=== PATIENT | male | born 1970 | race Hispanic/Latino ===

== ENCOUNTER 2017-08-20 | Emergency (ER) | payer SELFPAY ==
--- NOTE | 2017-08-20 18:52 | ER ---
Nurse's Notes [facility] Name: Yobani Dang Age: 47 yrs Sex: Male : 1970 Arrival Date: 08/20/2017 Time: 18:42 Bed External Waiting Private MD: Diagnosis: Presentation: 08/20 18:40 Presenting complaint: EMS states: pt was being loaded into a police car after being iw arrested, appeared to have seizure like behavior, EMS arrived on scene and pt was A\T\OX3, not post-ictal, then while being loaded into ambulance pt started to c/o chest pain, sinus tach on monitor, hypertensive at 180/118, EMS gave Nitro SL X 2, last BP was 143/97, pt also started to c/o SOB upon arrival to ER. 18:40 Method Of Arrival: EMS: [facility] iw 18:40 Transition of care: patient was not received from another setting of care. Onset of iw symptoms was August 20, 2017. Care prior to arrival: Medication(s) given: ASA, 81 mg, x 4, Nitroglycerin, 0.4 mg SL x 2. 18:40 Acuity: MOR 3 iw Assessment: 18:42 Reassessment: pt ambulated out of department after receiving report from EMS. ED Course: 18:42 Patient arrived in ED. iw 18:44 Lucia Natarajan, RN is Primary Nurse. iw 18:48 Triage completed. iw Administered Medications: No medications were administered Outcome: 18:49 Eloped from patient exam room, before seeing physician Time discovered patient gone: iw August 20, 2017 at 18:42 18:49 Condition: improved 18:51 Patient left the ED. iw Signatures: Lucia Natarajan, RN RN iw
== END 2017-08-20 18:51 | disposition left against medical advice (07) ==
DX: Z53.21 Procedure and treatment not carried out due to patient leaving prior to being seen by health care provider (principal)
CPT/HCPCS: 99282

== ENCOUNTER 2022-04-16 17:24 | Emergency (ER) | payer SELFPAY ==
--- OUTSIDE RECORDS SUMMARY | 2022-04-16 17:26 | XMS REPORT | Continuity of Care Document ---
:1970 Author Organization [facility] t Address [address] [place] [address] Care Team Providers Name Role Phone DR MYLA BERMEO Attending Clinician Unavailable DR MYLA BERMEO Admitting Clinician Unavailable Payers Payer Name Policy Type Policy Number Effective Date Expiration Date S ource Problems This patient has no known problems. Allergies, Adverse Reactions, Alerts Allergy Allergy Status Severity Reaction(s) Onset Inactive Treating Comm ents Source Name Type Date Date Clinician No Known DA Active U 0 [facility] All[facility]ie 07-13 Pearlan s 00:00: d 00 [facility] Medications This patient has no known medications. Procedures This patient has no known procedures. Encounters Start End Encounter Admission Attending Care Care Encounter Source Date/Time Date/Time Type Type Clinicians Facility Department ID 2022-04-16 2022-04-16 Outpatient [facility] [id number] Jose Ramon 16:57:53 16:57:53 Carlos Alberto F Marcos 2017-08-23 2017-08-25 Inpatient E [facility] [id number] [place] 23:29:00 15:41:00 MYLA [facility] Results Test Description Test Time Test Comments Results Result Comments Source XR ELBOW LEFT 2017-08-25 Left Elbow, 3 COMPLETE 3 VIEWS 14:35:53 viewsLocation Code: [id number] HISTORY: M25.522: PAIN IN LEFT ELBOWCOMMENTS: AP, lateral, and oblique views of the left elbow demonstrate no acutefracture or malalignment. The soft tissues are unremarkable.IMPRESS ION: No acute radiographic abnormality. CPK 2017-08-25 04:32:00 Test Item Value Reference Range Interpretation Comme nts CPK (test code = 32A) 2560 IU/L 39-308 H BASIC METABOLIC [id number] 04:31:00 Test Item Value Reference Range Interpretation Comments GLUCOSE (test code = 06D) 112 mg/dL 75-100 H SODIUM (test code = 01A) 137 mmol/L 136-145 POTASSIUM (test code = 01B) 3.6 mmol/L 3.6-5.1 CHLORIDE (test code = 04A) 106 mmol/L 98-107 CO2 (test code = 02A) 26 mmol/L 22-32 ANION GAP (test code = ANG) 8.6 mmol/L BUN (test code = 05D) 11 mg/dL 7-18 CREATININE (test code = 03E) 0.8 mg/dL 0.7-1.3 BUN/CREA (test code = BCR) 14 12-20 CALCIUM (test code = 09D) 8.1 mg/dL 8.3-9.5 L CARDIAC [id number] 06:29:00 Test Item Value Reference Range Interpretation Comments TROPONIN I (test code = A84) 0.026 ng/mL 0.000-0.045 CKMB (test code = A49) 3.4 ng/mL <=3.6 CPK (test code = 32A) 6493 IU/L 39-308 H BASIC METABOLIC [id number] 06:08:00 Test Item Value Reference Range Interpretation Comments GLUCOSE (test code = 06D) 107 mg/dL 75-100 H SODIUM (test code = 01A) 139 mmol/L 136-145 POTASSIUM (test code = 01B) 3.9 mmol/L 3.6-5.1 CHLORIDE (test code = 04A) 107 mmol/L 98-107 CO2 (test code = 02A) 26 mmol/L 22-32 ANION GAP (test code = ANG) 9.9 mmol/L BUN (test code = 05D) 15 mg/dL 7-18 CREATININE (test code = 03E) 0.9 mg/dL 0.7-1.3 BUN/CREA (test code = BCR) 16 12-20 CALCIUM (test code = 09D) 7.8 mg/dL 8.3-9.5 L CBC (INCLUDES AUTOMATED DIFFERENTIAL)2017-08-24 06:00:00 Test Item Value Reference Range Interpretation Comments WBC (test code = WBC) 12.7 10\S\3/uL 4.5-11.0 H RBC (test code = RBC) 5.00 10\S\6/uL 4.20-5.60 HGB (test code = HBG) 14.7 g/dL 14.0-18.0 HCT (test code = HCT) 44.0 % 35.0-46.0 MCV (test code = MCV) 88.0 fL 80.0-94.0 MCH (test code = MCH) 29.4 pg 27.0-31.0 MCHC (test code = MCHC) 33.4 g/dL 32.0-36.0 RDW (test code = RDW) 11.9 % 11.5-14.5 PLT (test code = PLT) 276 10\S\3/uL 130-400 MPV (test code = MPV) 10.0 fL 9.4-12.4 NEUTROP # (test code = NE#) 8.8 10\S\3/uL 2.0-8.0 H LYMPH # (test code = LY#) 2.5 10\S\3/uL 1.2-4.0 MONOCYTE # (test code = MO#) 1.2 10\S\3/uL 0.0-1.1 H EOSINOPH # (test code = EO#) 0.1 10\S\3/uL 0.0-0.7 BASOPHIL # (test code = BA#) 0.0 10\S\3/uL 0.0-0.3 IG # (test code = IG#) 0.03 10\S\3/uL 0.00-0.06 NRBC # (test code = NRBC#) 0.00 10\S\3/uL 0.00-0.01 NEUTROPH % (test code = NE%) 69.7 % 35.0-73.0 LYMPH % (test code = LY%) 20.0 % 20.0-55.0 MONO % (test code = MO%) 9.1 % 2.5-10.0 EOSINOPH % (test code = EO%) 0.8 % 0.0-5.0 BASOPHIL % (test code = BA%) 0.2 % 0.0-2.0 IG % (test code = IG%) 0.2 % 0.0-0.8 NRBC% (test code = NRBC%) 0.0 % 0.0-0.2 MANDIFF (test code = MDIFF) NO NO RBC MORPH (test code = RBCMOR) NORMAL CARDIAC [id number] 22:59:00 Test Item Value Reference Range Interpretation Comments TROPONIN I (test code = A84) 0.030 ng/mL 0.000-0.045 CKMB (test code = A49) 4.2 ng/mL <=3.6 HH CPK (test code = 32A) 19138 IU/L 39-[address] HEAD W/O [id number] 22:45:39CT HEAD W/O CONTRASTLocation: [id number] [facility] provided 08/23/2017 10:45 PMIndication: R51: HEADACHEComparison: None available.Technique: Axial CT images were acquired through the brain without contrast.All CT scans at this facility use dose modulation, iterative reconstruction,and or weight-based dosing when appropriate to reduce radiation dose to as lowas reasonably achievable.Findings: No acute intracranial hemorrhage, mass or area of mass effect isnoted. The ventricles and sulci appear normal. Extra-axial spaces are clear.Limited views of the paranasal sinuses, mastoids and orbits appearunremarkable. The calvarium is intact.Impression: No acute intracranial abnormality.CT images were acquired within 24 hours of arrival at the facility.XR CHEST 1 VIEW [id number] 22:42:10XR CHEST 1 VIEW PORTABLELocation:R9Qjhip [facility] services provided 08/23/2017 10:41 PMIndication:[id number]: Chest painComparison:Not availableFindings:The lungs are equally and symmetrically inflated. The trachea ismidline. The cardiac silhouette is normal in size. No acute bony abnormality.Impression:No acute cardiopulmonary disease.AMYLASE AND [id number] 22:31:00 Test Item Value Reference Range Interpretation Comments AMYLASE (test code = 10A) 39 U/L 28-100 LIPASE (test code = 60A) 176 IU/L 73-393 COMPREHENSIVE METABOLIC [id number] 22:31:00 Test Item Value Reference Range Interpretation Comments GLUCOSE (test code = 06D) 83 mg/dL 75-100 SODIUM (test code = 01A) 140 mmol/L 136-145 POTASSIUM (test code = 01B) 3.9 mmol/L 3.6-5.1 CHLORIDE (test code = 04A) 104 mmol/L 98-107 CO2 (test code = 02A) 26 mmol/L 22-32 ANION GAP (test code = ANG) 13.9 mmol/L BUN (test code = 05D) 17 mg/dL 7-18 CREATININE (test code = 03E) 1.4 mg/dL 0.7-1.3 H BUN/CREA (test code = BCR) 12 12-20 CALCIUM (test code = 09D) 8.8 mg/dL 8.3-9.5 BILI TOTAL (test code = 11A) 0.3 mg/dL 0.2-1.0 PROTEIN (test code = 07D) 7.4 g/dL 6.4-8.2 ALBUMIN (test code = 08D) 3.6 g/dL 3.5-4.8 GLOBULIN (test code = GLB) 3.8 g/dL 1.5-3.8 ALB/GLOB (test code = AGRR) 0.9 1.0-2.6 L ALK PHOS (test code = 35A) 104 IU/L 42-121 AST (test code = 30A) 144 IU/L <=42 H ALT (test code = 31A) 64 IU/L <=78
[2022-04-16] MEDS ORDERED: DIAZEPAM 5 MG TABLET ONE (17:48)
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
--- NOTE | 2022-04-16 18:26 | EDPHYS ---
Physician Documentation [facility] Name: Yobani Dang Age: 52 yrs Sex: Male : 1970 Arrival Date: 04/16/2022 Time: 17:28 Bed 15 Private MD: ED Physician Jayden Nunes HPI: 04/16 17:54 This 52 yrs old Male presents to ER via Ambulatory with complaints of Anxiety. rn 17:54 The patient presents to the emergency department with anxiety, over unknown rn circumstances. Onset: The symptoms/episode began/occurred 2 day(s) ago. Associated signs and symptoms: Pertinent positives; anxiety, Pertinent negatives: chest pain, fever, hallucinations, homicidal ideation, shortness of breath, suicide ideation. Severity of symptoms: At their worst the symptoms were moderate in the emergency department the symptoms are unchanged. The patient has experienced similar episodes in the past. The patient has not recently seen a physician. Pt reports anxiety and panic attack, chronic anxiety, used to be on klonopin and celexa, but since leaving long term no longer taking it. Has appt coming up with [facility] but states doesn't feel like he can wait, wants anxiety medication now. Denies chest pain/sob/illness/fever. . Historical: - Allergies: 17:30 No Known Allergies; iw - Home Meds: 17:30 None [Active]; iw - PMHx: 17:30 Depression; Hypertension; PTSD; iw - PSHx: 17:30 knee; iw - Immunization history:: Client reports receiving the 2nd dose of the Covid vaccine. - Social history:: Smoking status: Patient denies any tobacco usage or history of. Patient/guardian denies using. - Family history:: not pertinent. - Hospitalizations: : No recent hospitalization is reported. ROS: 17:54 Constitutional: Negative for fever, chills, and weight loss, Eyes: Negative for injury, rn pain, redness, and discharge, Neck: Negative for injury, pain, and swelling, Cardiovascular: Negative for chest pain, palpitations, and edema, Respiratory: Negative for shortness of breath, cough, wheezing, and pleuritic chest pain, Abdomen/GI: Negative for abdominal pain, nausea, vomiting, diarrhea, and constipation, Back: Negative for injury and pain, MS/Extremity: Negative for injury and deformity, Skin: Negative for injury, rash, and discoloration, Neuro: Negative for headache, weakness, numbness, tingling, and seizure, Psych: Negative for suicide ideation, homicidal ideation, and hallucinations. Exam: 17:54 Constitutional: This is a well developed, well nourished patient who is awake, alert, rn seems very anxious Head/Face: Normocephalic, atraumatic. Eyes: Periorbital areas with no swelling, redness, or edema. Cardiovascular: Tachycardic, regular. No pulse deficits. Respiratory: Mild tachypnea, no retractions, no wheezing Abdomen/GI: Soft, non-tender Skin: Warm, dry, no cyanosis MS/ Extremity: Pulses equal, no cyanosis. Neuro: Awake and alert, GCS 15 18:01 ECG was reviewed by the Attending Physician. rn Vital Signs: 17:28 BP 169 / 110; Pulse 105; Resp 22; Temp 98.2; Pulse Ox 100% on R/A; Weight 104.33 kg; iw Height 5 ft. 6 in. (167.64 cm); 18:47 BP 134 / 90; Pulse 97; Resp 17; Pulse Ox 96% on R/A; tw2 17:28 Body Mass Index 37.12 (104.33 kg, 167.64 cm) iw MDM: 17:35 Patient medically screened. rn 18:24 Differential diagnosis: anxiety. Data reviewed: vital signs, nurses notes, EKG, and as rn a result, I will discharge patient. Counseling: I had a detailed discussion with the patient and/or guardian regarding: the historical points, exam findings, and any diagnostic results supporting the discharge/admit diagnosis, the need for outpatient follow up, to return to the emergency department if symptoms worsen or persist or if there are any questions or concerns that arise at home. Response to treatment: the patient's symptoms have markedly improved after treatment, and as a result, I will discharge patient. Special discussion: I discussed with the patient/guardian in detail that at this point there is no indication for admission to the hospital. It is understood, however, that if the symptoms persist or worsen the patient needs to return immediately for re-evaluation. Based on the history and exam findings, there is no indication for further emergent testing or inpatient evaluation. I discussed with the patient/guardian the need to see the psychiatrist for further evaluation of the symptoms. 11/15 17:44 Order name: EKG; Complete Time: 17:44 rn 04/16 17:44 Order name: EKG - Nurse/Tech; Complete Time: 17:56 rn EC:01 Rate is 101 beats/min. Rhythm is regular. QRS [place] is Normal. VT interval is normal. rn QRS interval is normal. QT interval is normal. No Q waves. T waves are Normal. No ST changes noted. Clinical impression: Sinus tachycardia. Interpreted by me. Reviewed by me. Administered Medications: 17:50 Drug: Valium (diazepam) 5 mg Route: PO; tw2 18:47 Follow up: Response: No adverse reaction tw2 Disposition Summary: 04/16/22 18:25 Discharge Ordered Location: Home rn Problem: an ongoing problem rn Symptoms: have improved rn Condition: Stable rn Diagnosis - Anxiety disorder, unspecified rn Followup: rn - With: Private Physician - When: As needed - Reason: Recheck today's complaints, Re-evaluation by your physician Discharge Instructions: - Discharge Summary Sheet rn - Panic Attack rn - Generalized Anxiety Disorder, Adult rn - Managing Anxiety, Adult rn Forms: - Medication Reconciliation Form rn - Thank You Letter rn - Antibiotic return checker - Prescription Opioid Use rn Prescriptions: - Celexa 20 mg Oral Tablet - take 1 tablet by ORAL route once daily; 30 tablet; Refills: 0, Product rn Selection Permitted - Valium 2 mg Oral Tablet - take 1 tablet by ORAL route once daily As needed; 5 tablet; Refills: 0, Product rn Selection Permitted Signatures: Lucia Natarajan RN RN iw Nieto, Roman, MD MD rn Wise, Tara, RN RN tw2 Corrections: (The following items were deleted from the chart) 17:31 17:30 PSHx: None; [facility]
[2022-04-16 19:07] VITALS: TEMP 98.2
[2022-04-16 19:08] VITALS: BP 134/90; O2SAT 96
--- NOTE | 2022-04-17 19:02 | EKG ---
Test Date: 2022-04-16 Test Time: 17:52:38 System Support Developer: WILMER MEASUREMENT RESULTS: Intervals: Rate: 101 TN: 140 QRSD: 90 QT: 372 QTc: 482 [place]: P: 39 TN: 140 QRS: -5 T: 19 INTERPRETIVE STATEMENTS: Sinus tachycardia Inferior infarct, age undetermined Abnormal ECG No previous ECG available for comparison Electronically Signed On 04-17-22 19:00:32 C APPLICATION DEVELOPER by Kirill Pastrana
== END 2022-04-16 19:02 | disposition home or self-care (01) ==
LOC: ER 17:24
DX: F41.9 Anxiety disorder, unspecified (principal)
CPT/HCPCS: 93005; 99283

== ENCOUNTER 2023-02-22 06:45 | Emergency (ER) | payer OTHER ==
[~2023-02-22 06:45] MED LIST: HYDROCODONE/APAP 5/325 MG TAB ONE; ONDANSETRON 4 MG (ODT) TAB ONE
--- OUTSIDE RECORDS SUMMARY | 2023-02-22 06:48 | XMS REPORT | Continuity of Care Document ---
:1970 Author Organization [facility] t Address [address] [place] [address] Care Team Providers Name Role Phone KYLEE REVELES Attending Clinician Unavailable [facility], DR LANZA Attending Clinician Unavailable [facility], DR LANZA Admitting Clinician Unavailable Payers Payer Name Policy Type Policy Number Effective Date Expiration Date S aan [employer] [facility] 9 [id number] 2022 00:00:00 SILVER: HMO MANAGER PRESENTATION 94 ON STAND Problems This patient has no known problems. Allergies, Adverse Reactions, Alerts Allergy Allergy Status Severity Reaction(s) Onset Inactive Treating Comm ents Source Name Type Date Date Clinician No Known DA Active U [facility] Allergie 2-11 Pearlan s 00:00: d 00 [facility] Medications This patient has no known medications. Procedures This patient has no known procedures. Encounters Start End Encounter Admission Attending Care Care Encounter Source Date/Time Date/Time Type Type Clinicians Facility Department ID 2022-10-31 2022-10-31 Outpatient ANTHONY REVELES [id number] [place] 15:15:00 15:15:00 KYLEE lewis 2022-10-16 2022-10-16 Outpatient ANTHONY REVELES [id number] Anthony 08:15:00 08:15:00 KYLEE lewis 2022-04-16 2022-04-16 Outpatient BOSSMAN KEITA [id number] Jose Ramon 16:57:53 16:57:53 Jazmin5 F Marcos 2017-08-23 2017-08-25 Inpatient E [facility] [id number] [place] 23:29:00 15:41:00 [facility] Results Test Description Test Time Test Comments Results Result Comments Source XR ELBOW LEFT 2017-08-25 Left Elbow, 3 COMPLETE 3 VIEWS 14:35:53 viewsLocation Code: [id number] HISTORY: M25.522: PAIN IN LEFT ELBOWCOMMENTS: AP, lateral, and oblique views of the left elbow demonstrate no acutefracture or malalignment. The soft tissues are unremarkable.IMPRESS ION: No acute radiographic abnormality. CPK 2017-08-25 04:32:00 Test Item Value Reference Range Interpretation Comme nts CPK (test code = 32A) 2560 IU/L 39-308 H BASIC METABOLIC [id number] 04:31:00 Test Item Value Reference Range Interpretation [...] = 09D) 8.1 mg/dL 8.3-9.5 L CARDIAC [id number] 06:29:00 Test Item Value Reference Range Interpretation Comments TROPONIN I (test code = A84) 0.026 ng/mL 0.000-0.045 CKMB (test code = A49) 3.4 ng/mL <=3.6 CPK (test code = 32A) 6493 IU/L 39-308 H BASIC METABOLIC [id number] 06:08:00 Test Item Value Reference Range Interpretation [...] MORPH (test code = RBCMOR) NORMAL CARDIAC [id number] 22:59:00 Test Item Value Reference Range Interpretation Comments TROPONIN I (test code = A84) 0.030 ng/mL 0.000-0.045 CKMB (test code = A49) 4.2 ng/mL <=3.6 HH CPK (test code = 32A) 02937 IU/L 39-[address] HEAD W/O [id number] 22:45:39CT HEAD W/O CONTRASTLocation: [id number] [employer] services provided 08/23/2017 10:45 PMIndication: R51: HEADACHEComparison: [...] arrival at the facility.XR CHEST 1 VIEW [id number] 22:42:10XR CHEST 1 VIEW PORTABLELocation:B8Prcrq [employer] services provided 08/23/2017 10:41 PMIndication:[id number]: Chest painComparison:Not availableFindings:The lungs are equally and symmetrically inflated. The trachea ismidline. The cardiac silhouette is normal in size. No acute bony abnormality.Impression:No acute cardiopulmonary disease.AMYLASE AND [id number] 22:31:00 Test Item Value Reference Range Interpretation Comments AMYLASE (test code = 10A) 39 U/L 28-100 LIPASE (test code = 60A) 176 IU/L 73-393 COMPREHENSIVE METABOLIC [id number] 22:31:00 Test Item Value Reference Range Interpretation [...]
[2023-02-22 07:49] LABS: Absolute Lymphocytes (CBC) 1.3 K/uL (0.7-4.9); Hematocrit 44.1 % (39.6-49.0); Lymphocytes % 18.6 % (15.3-44.8); MCV 90.6 fL (80-100); MPV 7.8 fL (7.6-11.3); Platelets 223 thou/uL (152-406); RBC Red Blood Cell Count 4.87 M/uL (4.33-5.43)
[2023-02-22 08:10] LABS: Potassium 4.1 mEq/L (3.5-5.1); Troponin High Sensitivity 34.2 pg/mL (<58.9)
[2023-02-22] MEDS ORDERED: DIAZEPAM 2 MG TABLET ONE (08:31)
--- NOTE | 2023-02-22 08:54 | EDPHYS ---
Physician Documentation [facility] Name: Yobani Dang Age: 53 yrs Sex: Male : 1970 Arrival Date: 02/22/2023 Time: 06:45 Bed 5 Private MD: ED Physician Jayden Nunes HPI: 02/22 07:44 This 53 yrs old Male presents to ER via Ambulatory with complaints of Anxiety. rn 07:44 Patient reports feeling anxious. Has generalized anxiety and takes multiple medication rn including trazodone and citalopram and Zyprexa. Has not run out of medication. No acute triggers. Patient reports started feeling anxious this morning and does not know why. Denies any chest pain or shortness of breath. No palpitations. Reports has hypertension and knows his blood pressure is high as well, compliant with amlodipine. Patient reports feeling of anxiety associated with nausea and sweating. Patient states that this constellation of symptoms has happened before with previous anxiety episodes.. Onset: The symptoms/episode began/occurred this morning. Severity of symptoms: At their worst the symptoms were moderate in the emergency department the symptoms are unchanged. The patient has experienced similar episodes in the past. The patient has not recently seen a physician. Historical: - Allergies: 07:11 No Known Allergies; hb - Home Meds: 07:11 citalopram oral [Active]; aripiprazole oral [Active]; trazodone Oral [Active]; hb amlodipine oral [Active]; - PMHx: 07:11 Depression; Hypertension; PTSD; Kidney Stones; Anxiety; hb - PSHx: 07:11 Knee - Right (knee); Lithotripsy; hb - Immunization history:: Adult Immunizations up to date. - Social history:: Smoking status: Patient denies any tobacco usage or history of. - Family history:: not pertinent. - Hospitalizations: : No recent hospitalization is reported. ROS: 07:44 Constitutional: Negative for fever, chills, and weight loss, Eyes: Negative for injury, rn pain, redness, and discharge, Cardiovascular: Negative for chest pain, palpitations, and edema, Respiratory: Negative for shortness of breath, cough, wheezing, and pleuritic chest pain, Abdomen/GI: Positive for nausea, negative for vomiting, negative for abdominal pain Back: Negative for injury and pain, MS/Extremity: Negative for injury and deformity, Skin: Negative for injury, rash, and discoloration, Neuro: Negative for headache, weakness, numbness, tingling, and seizure, Exam: 07:44 Constitutional: This is a well developed, well nourished patient who is awake, alert, rn and in no acute distress. No diaphoresis and is ambulatory to room without distress or assistance Head/Face: Normocephalic, atraumatic. ENT: Dry mucous membranes Cardiovascular: Regular rate and rhythm. No pulse deficits. Respiratory: No increased work of breathing, no retractions or nasal flaring. Abdomen/GI: Soft, non-tender Skin: Warm, dry MS/ Extremity: Pulses equal, no cyanosis. Neuro: Awake and alert, GCS 15, oriented to person, place, time, and situation. Cranial nerves II-XII grossly intact. Motor strength 5/5 in all extremities. Sensory grossly intact. Cerebellar exam normal. Normal gait. 08:15 ECG was reviewed by the Attending Physician. rn Vital Signs: 07:10 BP 168 / 110; Pulse 95; Resp 19; Temp 98.3; Pulse Ox 100% on R/A; Weight 108.86 kg; hb Height 5 ft. 6 in. ; Pain 0/10; 08:28 BP 160 / 100; Pulse 90; Resp 18; Pulse Ox 97% on R/A; ph 09:22 BP 148 / 79; Pulse 89; Resp 18; Pulse Ox 98% on R/A; ld1 07:10 Body Mass Index 38.74 (108.86 kg, 167.64 cm) hb 07:10 Pain Scale: Adult hb MDM: 07:02 Patient medically screened. rn 08:52 Differential Diagnosis Anxiety, acute myocardial infarction, hypertension, anemia. Data rn reviewed: vital signs, nurses notes, lab test result(s), EKG. 08:53 Independent interpretation of the following test(s) in the Emergency Department X-Ray: rn My interpretation is Chest x-ray images negative for pneumothorax per my interpretation. Counseling: I had a detailed discussion with the patient and/or guardian regarding the historical points, exam findings, and any diagnostic results supporting the discharge/admit diagnosis, lab results, radiology results, the need for outpatient follow up, to return to the emergency department if symptoms worsen or persist or if there are any questions or concerns that arise at home. Response to treatment: the patient's symptoms have mildly improved after treatment, and as a result, I will discharge patient. Special discussion: I discussed with the patient/guardian in detail that at this point there is no indication for admission to the hospital. It is understood, however, that if the symptoms persist or worsen the patient needs to return immediately for re-evaluation. 08:54 ED course: I have personally reviewed all of the results, including but not limited to rn blood tests and imaging deemed necessary to safely discharge this patient at this time. All results given to and printed out for patient. I personally went over all the results with the patient and answered all questions. Patient will follow-up with PCP and or specialist as discussed. Return precautions given and understood.. 02/22 07:08 Order name: Basic Metabolic Panel; Complete Time: 08:11 02/22 07:08 Order name: CBC with Diff; Complete Time: 08:11 02/22 07:08 Order name: NT PRO-BNP; Complete Time: 08:11 02/22 07:08 Order name: Troponin HS; Complete Time: 08:11 02/22 07:08 Order name: XRAY Chest (1 view); Complete Time: 09:18 02/22 07:08 Order name: EKG; Complete Time: 07:02/22 07:08 Order name: Cardiac monitoring; Complete Time: 08:18 02/22 07:08 Order name: EKG - Nurse/Tech; Complete Time: 08:18 02/22 07:08 Order name: IV Saline Lock; Complete Time: 08:18 02/22 07:08 Order name: Labs collected and sent; Complete Time: 08:18 02/22 07:08 Order name: O2 Per Protocol; Complete Time: 08:18 02/22 07:08 Order name: O2 Sat Monitoring; Complete Time: 08:18 rn EC:15 Rate is 89 beats/min. Rhythm is regular. QRS [place] is Normal. [place] interval is normal. QRS rn interval is normal. QT interval is normal. No Q waves. T waves are Normal. No ST changes noted. Clinical impression: Normal ECG. Interpreted by me. Reviewed by me. Administered Medications: 08:26 Drug: Diazepam PO 2 mg PO once Route: PO; ph Disposition Summary: 02/22/23 08:53 Discharge Ordered Notes: Location: Home rn Problem: new rn Symptoms: have improved rn Condition: Stable rn Diagnosis - Anxiety disorder, unspecified rn Followup: rn - With: Private Physician - When: As needed - Reason: Recheck today's complaints, Re-evaluation by your physician Discharge Instructions: - Discharge Summary Sheet rn - Generalized Anxiety Disorder, Adult rn - Managing Anxiety, Adult rn Forms: - Medication Reconciliation Form rn - Thank You Letter rn - Antibiotic double corner cutter - Prescription Opioid Use rn - Patient Portal Instructions rn - Leadership Thank You Letter rn Prescriptions: - Valium 2 mg Oral tablet - take 1 tablet ORAL route once daily As needed; 5 tablet; Refills: 0, Product rn Selection Permitted - Zithromax Z-Dru 250 mg Oral Tablet - take 1 tablet ORAL route as directed for 5 days Day 1 - take two (2) tablets rn one time. Day 2, 3, 4 , 5 take one (1) tablet once daily.; 6 tablet; Refills: 0, Product Selection Permitted Signatures: Dispatcher [employer] EDNE Jayden Nunes MD MD rn Hall, Patricia, RN RN ph Baxter, Heather, RN RN hb Corrections: (The following items were deleted from the chart) 07:21 07:11 PSHx: knee; hb hb
--- NOTE | 2023-02-22 08:54 | ER ---
Nurse's Notes [facility] Name: Yobani Dang Age: 53 yrs Sex: Male : 1970 Arrival Date: 02/22/2023 Time: 06:45 Bed 5 Private MD: Diagnosis: Anxiety disorder, unspecified Presentation: 02/22 07:10 Chief complaint: Feeling anxious since 11pm last night, also reports nausea, dry hb heaves, and sweating. Denies chest pain/SOB. Coronavirus screen: At this time, the client does not indicate any symptoms associated with coronavirus-19. Ebola Screen: No symptoms or risks identified at this time. Initial Sepsis Screen: Does the patient meet any 2 criteria? No. Patient's initial sepsis screen is negative. Does the patient have a suspected source of infection? No. Patient's initial sepsis screen is negative. Risk Assessment: Do you want to hurt yourself or someone else? Patient reports no desire to harm self or others. Onset of symptoms was February 21, 2023. 07:10 Method Of Arrival: Ambulatory hb 07:10 Acuity: MOR 3 hb Historical: - Allergies: 07:11 No Known Allergies; hb - Home Meds: 07:11 citalopram oral [Active]; aripiprazole oral [Active]; trazodone Oral [Active]; hb amlodipine oral [Active]; - PMHx: 07:11 Depression; Hypertension; PTSD; Kidney Stones; Anxiety; hb - PSHx: 07:11 Knee - Right (knee); Lithotripsy; hb - Immunization history:: Adult Immunizations up to date. - Social history:: Smoking status: Patient denies any tobacco usage or history of. - Family history:: not pertinent. - Hospitalizations: : No recent hospitalization is reported. Screenin:27 [facility] ED Fall Risk Assessment (Adult) History of falling in the last 3 months, ph including since admission No falls in past 3 months (0 pts) Confusion or Disorientation No (0 pts) Intoxicated or Sedated No (0 pts) Impaired Gait No (0 pts) Mobility Assist Device Used No (0 pt) Altered Elimination No (0 pt) Score/Fall Risk Level 0 - 2 = Low Risk Oriented to surroundings, Maintained a safe environment, Provided non-skid footwear, Hourly rounding (assess needs \T\ fall precautionary measures) done. Abuse screen: Denies threats or abuse. Denies injuries from another. Nutritional screening: No deficits noted. Tuberculosis screening: No symptoms or risk factors identified. Assessment: 08:27 General: Appears in no apparent distress. Behavior is calm, cooperative. Pain: Denies ph pain. Neuro: Level of Consciousness is awake, alert, obeys commands, Oriented to person, place, time, situation. Cardiovascular: Reports diaphoresis, lightheadedness, nausea, Denies chest pain, shortness of breath, Capillary refill < 3 seconds in bilateral fingers Patient's skin is warm and dry. Respiratory: Airway is patent Respiratory effort is even, unlabored. Derm: Skin is pink, warm \T\ dry. 09:22 Reassessment: Patient appears in no apparent distress at this time. No changes from ld1 previously documented assessment. Patient and/or family updated on plan of care and expected duration. Pain level reassessed. Vital Signs: 07:10 BP 168 / 110; Pulse 95; Resp 19; Temp 98.3; Pulse Ox 100% on R/A; Weight 108.86 kg; hb Height 5 ft. 6 in. ; Pain 0/10; 08:28 BP 160 / 100; Pulse 90; Resp 18; Pulse Ox 97% on R/A; ph 09:22 BP 148 / 79; Pulse 89; Resp 18; Pulse Ox 98% on R/A; ld1 07:10 Body Mass Index 38.74 (108.86 kg, 167.64 cm) hb 07:10 Pain Scale: Adult hb ED Course: 06:48 Patient arrived in ED. ag3 06:58 Jayden Nunes MD is Attending Physician. rn 07:11 Triage completed. hb 07:16 Michelle Manzano, WANDA is Primary Nurse. ld1 07:50 XRAY Chest (1 view) In Process Unspecified. EDMS 08:26 Arm band placed on Patient placed in an exam room. ph 08:26 Initial lab(s) drawn, by ED staff, sent to lab. Inserted saline lock: 22 gauge in right ph hand, using aseptic technique. 08:27 Patient has correct armband on for positive identification. Placed in gown. Bed in low ph position. Call light in reach. Side rails up X2. Client placed on continuous cardiac and pulse oximetry monitoring. NIBP monitoring applied. Door closed. Noise minimized. Lights dimmed. Warm blanket given. : No provider procedures requiring assistance completed. IV discontinued, intact, ld1 bleeding controlled, No redness/swelling at site. Administered Medications: : Drug: Diazepam PO 2 mg PO once Route: PO; ph Medication: : VIS not applicable for this client. ph Outcome: 08:53 Discharge ordered by . wanda : Discharged to home ambulatory, ld1 : Condition: stable : Discharge instructions given to patient, Instructed on discharge instructions, follow up and referral plans. medication usage, Demonstrated understanding of instructions, follow-up care, medications, Prescriptions given X 2, : Patient left the ED. ld1 Signatures: Dispatcher [employer] EDMS Jayden Nunes MD MD rn Hall, Patricia, RN RN ph Baxter, Heather, RN RN Jazmin Messer Lauren, RN RN ld1 Corrections: (The following items were deleted from the chart) 07:21 07:11 PSHx: knee; hb hb
--- NOTE | 2023-02-22 09:11 | RAD REPORT ---
EXAM DESCRIPTION: RAD - Chest Single View - 02/22/2023 7:48 am CLINICAL HISTORY: anxiety Chest pain. COMPARISON: <Comparisons> FINDINGS: Portable technique limits examination quality. The lungs are underinflated which causes vascular prominence. Mild patchy opacity in the left retroca rdiac region suggesting mild infiltrate is possible. The heart is normal in size.
[2023-02-22 09:46] VITALS: TEMP 98.3
[2023-02-22 09:48] VITALS: BP 148/79; O2SAT 98
--- NOTE | 2023-02-24 12:35 | EKG ---
Test Date: 2023-02-22 Test Time: 08:13:30 Preparer: PH MEASUREMENT RESULTS: Intervals: Rate: 89 VT: 140 QRSD: 90 QT: 390 QTc: 474 [place]: P: 54 VT: 140 QRS: -14 T: 48 INTERPRETIVE STATEMENTS: Normal sinus rhythm Normal ECG Compared to ECG 04/16/2022 17:52:38 Sinus tachycardia no longer present Myocardial infarct finding no longer present Electronically Signed On 02-24-23 12:31:24 CDT by Manan Price
== END 2023-02-22 09:23 | disposition home or self-care (01) ==
LOC: ER 06:45
DX: F41.9 Anxiety disorder, unspecified (principal)
CPT/HCPCS: 85025; 80048; 36415; 84484; 83880; 71045; 99284; Q0162; 93005

== ENCOUNTER 2023-09-03 04:37 | Emergency (ER) | payer OTHER ==
--- OUTSIDE RECORDS SUMMARY | 2023-09-03 04:39 | XMS REPORT | Continuity of Care Document ---
Author Name Unknown Address [address] [facility] [address] [place] [address] [facility] Address [address] [facility] 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 9 [id number] 2022 00:00:00 Allergies, Adverse Reactions, Alerts Allergy Name Allergy Type Status Severity Reaction(s) Onset Date Inactive Date Treating Clinician Comments Source No Known Allergie s DA Active U 07-13 00:00: 00 [facility] Encounters Start Date/Time End Date/Time Encounter Type Admission Type Attending Clinicians Care Facility Care Department Encounter ID Source 2023-03-14 13:47:13 2023-03-14 13:47:13 Outpatient [facility] [id number] Jose Ramon Rodríguez 2022-10-31 15:15:00 2022-10-31 15:15:00 Outpatient KYLEE REVELES [id number] Nette Chiang 2022-10-16 08:15:00 2022-10-16 08:15:00 Outpatient KYLEE REVELES [id number] Nette zoraida 2022-04-16 16:57:53 2022-04-16 16:57:53 Outpatient [facility] [id number] Jose Ramon Rodríguez 2017-08-23 23:29:00 2017-08-25 15:41:00 Inpatient [facility] [id number] [facility] Results Test Description Test Time Test Comments Results Result Co mments Source XR ELBOW LEFT COMPLETE 3 VIEWS 2017-08-25 14:35:53 Left Elbow, 3 viewsLocation Code: U4GOVANLTT HISTORY: M25.522: PAIN IN LEFT ELBOWCOMMENTS: AP, lateral, and oblique views of the left elbow demonstrate no acutefracture or malalignment. The soft tissues are unremarkable.IMPRESS ION: No acute radiographic abnormality. BASIC METABOLIC [id number] 04:31:00* Test Item Value Reference Range Interpretation Comme nts GLUCOSE (test code = 06D) 112 mg/dL [...] = 09D) 8.1 mg/dL 8.3-9.5 L CARDIAC [id number] 06:29:00* Test Item Value Reference Range Interpretation Comme nts TROPONIN I (test code = A84) 0.026 ng/mL 0.000-0.045 CKMB (test code = A49) 3.4 ng/mL <=3.6 CPK (test code = 32A) 6493 IU/L 39-308 H BASIC METABOLIC [id number] 06:08:00* Test Item Value Reference Range Interpretation Comme nts GLUCOSE (test code = 06D) 107 mg/dL [...] mg/dL 8.3-9.5 L CBC (INCLUDES AUTOMATED DIFFERENTIAL)2017-08-24 06:00:00* Test Item Value Reference Range Interpretation Comme nts WBC (test code = WBC) 12.7 10\S\3/uL [...] MORPH (test code = RBCMOR) NORMAL CARDIAC [id number] 22:59:00* Test Item Value Reference Range Interpretation Comme nts TROPONIN I (test code = A84) 0.030 ng/mL 0.000-0.045 CKMB (test code = A49) 4.2 ng/mL <=3.6 HH CPK (test code = 32A) 81846 IU/L 39-[address] HEAD W/O [id number] 22:45:39CT HEAD W/O CONTRASTLocation: D9Llgxn hours services provided 08/23/2017 10:45 PMIndication: R51: HEADACHEComparison: None available.Technique: Axial CT images were acquired through the brain without contrast.All CT scans at this facility use dose modulation, iterative reconstruction,and or weight-based dosing when appropriate to reduce radiation dose to as lowas reasonably achievable.Findings: Noacute intracranial hemorrhage, mass or area of mass effect isnoted. The ventricles and sulci appear normal. Extra-axial spaces are clear.Limited views of the paranasal sinuses, mastoids and orbits appearunremarkable. The calvarium is intact.Impression: No acute intracranial abnormality.CT imageswere acquired within 24 hours of arrival at the facility.XR CHEST 1 VIEW [id number] 22:42:10XR CHEST 1 VIEW PORTABLELocation:B3Xewnc hours services provided 08/23/2017 10:41 PMIndication:[id number]: Chest painComparison:Not availableFindings:The lungs are equally and symmetrically inflated. The trachea ismidline. The cardiac silhouette is normal in size. No acute bony abnormality.Impression:No acute cardiopulmonary disease.AMYLASE AND [id number] 22:31:00* Test Item Value Reference Range Interpretation Comme nts AMYLASE (test code = 10A) 39 U/L 28-100 LIPASE (test code = 60A) 176 IU/L 73-393 COMPREHENSIVE METABOLIC [id number] 22:31:00* Test Item Value Reference Range Interpretation Comme nts GLUCOSE (test code = 06D) 83 mg/dL [...] (test code = 31A) 64 IU/L <=78 Notes Date/Time Note Provider Source 2018-07-13 01:07:00 [id number]:07 :00 [facility])EMERGENCY PROVIDER REPORTREPORT#:[id number] REPORT STATUS: SignedDATE:07/13/18 TIME:106 PATIENT: ALVARO MCFARLAND UNIT #: [id number]#: [id number] ROOM/BED:: 71 AGE: 48 SEX: M PCP PHYS: No Primary or Family PhysicianSERVICE AUTHOR: Kat Pascal MD * ALL edits or amendments must be made on the electronic/computer document * HPI-Dyspnea/Wheezing GeneralConfirmed Patient YesPatient Type New patientInitial Greet Date/Time 07/13/18106 PresentationChief Complaint Chest pain, Congestive heart failure, Shortness of breathHx Obtained From Patient, Process Machine Operator)( Sudden in Onset? YesSymptom Duration Since onsetProgression since Onset Gradually improvingSeverity: Onset ModerateSeverity: Current ModerateAssociated withReports: Chest pain. Denies: Cough, Diaphoresis, Fever, Leg pain, Leg swelling,Nausea, Vomiting. Exacerbated by NothingRelieved by Nothing Free Text HPI NotesFree Text HPI [id number] HM with PMH of CAD, CHF, and HTN p/w chest pain and SOB since this AM. Preceded by lightheadedness and dizziness. Associated with SOB. Exacerbated whenhe was stopped for shoplifting at [employer] (sandwich, bag of popcorn, and ice cream). Noted to be hypertensive on EMS arrival (185/120); given 20mg IV Labetalol en route to ER with improvement in symptoms. Pt now states symptoms remain present, but improved. Denies RICHARDSON, syncope, or N/V/D. Portions of this section were scribed by Luisito Estrella on 07/13/18 at 0337 Review of Systems ROS StatementsAll systems rev neg except as marked. Focused Review of SystemsConstitutionalDenies: Chills, Lethargy. Portions of this section were scribed by Luisito Estrella on 07/13/18 at 0107 Past Medical History - AdultStated Complaint CHEST PAINAllergiesCoded Allergies:No Known Allergies (07/13/18) Review of Nursing Notes Rev avail, and agreeSmoking status for patients 13 years old or older: Never Smoker Portions of this section were scribed by Luisito Estrella on 07/13/18 at 0107 Physical Exam Vital SignsVital SignsFirst Documented: Result Date Time Pulse Ox 100 07/13 99 B/P 148/98 07/13 99 B/P Mean 114 07/13 99 O2 Delivery Room air 07/13 99 Temp 98.3 07/13 99 Pulse 96 07/13 99 Resp 15 07/13 99 Last Documented: Result Date Time Pulse Ox 100 07/13 99 B/P 148/98 07/13 99 B/P Mean 114 07/13 99 O2 Delivery Room air 07/13 99 Temp 98.3 07/13 99 Pulse 96 07/13 99 Resp 15 07/13 99 Review of Vital Signs Reviewed Focused PEGeneral/Const General/Const Awake, Alert, No acute distress, Cooperative, Not toxic appearingEars/Nose/Throat Ears/Nose/Throat Mucous membranes moistMS Neck Neck Atraumatic, Supple, No meningismus, Full range of motionResp/Chest Respiratory/Chest Atraumatic, Breath sounds NL, Breath sounds = bilat, No respiratory distressCardiovascular Cardiovascular Heart rate NL, Regular rhythm, Heart sounds NL, Peripheral circulation NLAbdomen/GI Abdomen/GI Soft, Non-tender, No distentionSkin Skin Warm, Dry, IntactNeurologic Neurologic Oriented X3, Speech NL Portions of this section were scribed by Luisito Estrella on 07/13/18 at 0337 Interpretation Diagnostics Point of Care TestingPulse Oximetry Pulse Ox % 100 On: Room air Interpretation Interpreted by me, Pulse oximetry normal Time 0100 Portions of this section were scribed by Luisito Estrella on 07/13/18 at 0107 Re-Evaluation MDM Free Text MDM NotesFree Text MDM NotesA/P: 48yo HM with PMH as above p/w chest pain and SOB1. Labs2. CXR3. EKG4. Re-assessADDENDUMTime: 0105Immediately after concluding interview, Pt states that he wants to leave AMA - does not give reasoning. Pt has capacity to make this decision. Will remove IV and Pt to leave in police custody. Pt re-assessed; symptoms improved. Results of work-up d/w Pt; voiced understanding. OK for DC home with PCP follow-up. )( Re-Evaluation/Progress #1Time of Re-Eval 0105)( Re-Eval Status UnchangedPlan Post Re-Eval AMA Differential DiagnosisDifferential Diagnosis Acute coronary syndrome, Congestive heart failure, Panic attack Patient Discharge Departure Vital Signs/ConditionVital SignsFirst Documented: Result Date Time Pulse Ox 100 07/13 0100 B/P 148/98 07/13 0100 B/P Mean 114 07/13 0100 O2 Delivery Room air 07/13 99 Temp 98.3 07/13 0100 Pulse 96 07/13 0100 Resp 15 07/13 0100 Last Documented: Result Date Time Pulse Ox 100 07/13 0100 B/P 148/98 07/13 0100 B/P Mean 114 07/13 0100 O2 Delivery Room air 07/130 Temp 98.3 07/13 0100 Pulse 96 07/13 0100 Resp 15 07/13 0100 All vital signs available at the time of this entry have been reviewed. Condition Stable Clinical ImpressionClinical ImpressionPrimary Impression: Left sided chest painSecondary Impressions: ARRESTED FOR SHOPLIFTING, Malignant hypertension Disposition DecisionOther )( Time 0108 )( Date 07/13/18 Against Medical Advice Yes Discharge/Care PlanCounseled Regarding When to return to ED Against Medical Advice AMA Note 1Pt has decided to leave our facility against medical advice. I have assessed thepatient's ability to make an informed decision and it is my opinion at this timethat the patient has the medical decision-making capacity to comprehend information regarding current medical condition and appreciates the impact of the disease or condition and the consequences of various options for treatment, including foregoing treatment. The patient possesses the ability to evaluate alltreatment options, compare the risks and benefits of each option, communicate choice in a consistent manner over time, and is able to make rational choices. Ihave explained to the patient further testing, treatment, and evaluation I wouldlike to perform during the current emergency department visit as well as any possible alternatives that could be accomplished in a timely manner. I have outlined the possible risks of foregoing any or all of these interventions and the patient understands and acknowledges that the decision to leave may result in undesirable consequences such as , permanent disability, and/or loss of current lifestyle. Even though leaving AMA is not ideal, I have instructed the patient to follow any discharge instructions given, take any medications prescribed, and resume care as soon as possible with another provider. Additionally, we clearly stated that the patient is welcome to return at any time to continue care at our facility. AMA Request from PatientCognition Alert, Oriented X 3, Answers appropriate, Speaks coherently, Thought process intact, Understands AMACompetent to Decide YesReason for leaving AMA Refused to stayDiscussed Options to AMA YesPresent for Explanation Myself, NurseRisk Info Explained Possibility of , Permanent disability, Chronic pain, Worsening of condition, Neurological dysfunction, Cardiac dysfunction, Respiratory dysfunction, Mental impairment Quality [id number] ECG for CP Performed documented Supervising Physician Note Scribe StatementLuisito Estrella, 07/13/18 0337, scribing for and in the presence of Dr. Pascal.Signed By: Luisito Estrella, 07/13/18 0337 Provider Scribed StatementI personally performed the services described in this documentation and reviewedthe documentation that was dictated to the scribe(s) in my presence, and it accurately records my words and actions. Kat Pascal, 07/13/18 Portions of this section were scribed by Luisito Estrella on 07/13/18 at 0337 at 0347 RPT #: [id number] OF REPORTEDEmersaint mary's regional medical center department [id number]:07:00L.[id number] ilable for patient [id number]:47:20 [facility] 2018-07-13 01:01:00 [id number]:01 :[id number] [facility] [address] [place] [address] PATIENT NAME: ALVARO MCFARLAND ADMIT DATE: 07/13/18ACCOUNT NO: [id number] ROOM NO: AGE: 48 REPORT TYPE: eELECTROCARDIOGRAM SEX: M ADMITTING PHYSICIAN: ATTENDING PHYSICIAN: Order:[id number] Reason : (Not Selected) Test Date/Time Stamp:FriJul 13 2018 01:01:26Blood Pressure : / mmHGVent. Rate : 097 BPM Atrial Rate : 097 BPM P-R Int : 136 ms QRS Dur : 098 ms QT Int : 360 ms P-R-T Axes : 048 007 044 degrees QTc Int : 457 ms Normal sinus rhythmNormal ECGNo previous ECGs availableConfirmed by ARNOLD OROURKE MD ([id number]) on 07/17/2018 12:31:14 AM Referred By: Self Referred Confirmed by:ARNOLD OROURKE MD at 0031 PATIENT NAME: ALVARO MCFARLAND .[id number] AVAvailable for patient [id number]:30:56 [facility]
[2023-09-03] MEDS ORDERED: DIAZEPAM 5 MG TABLET ONE (05:22)
--- NOTE | 2023-09-03 06:22 | EDPHYS ---
Physician Documentation [facility] Name: Yobani Dang Age: 53 yrs Sex: Male : 1970 Arrival Date: 09/03/2023 Time: 04:37 Bed 8 Private MD: ED Physician Jermaine Cardoso HPI: 09/02 05:05 This 53 yrs old Male presents to ER via Unassigned with complaints of Anxiety. sp4 05:05 Allergies: No Known Allergies; Home Meds: citalopram oral; aripiprazole oral; trazodone sp4 Oral; amlodipine oral PMHx: Depression; Hypertension; PTSD; Kidney Stones; Anxiety PSHx: Knee - Right (knee); Lithotripsy. 07:36 Patient presents with complaint of acute anxiety attack starting this morning at about sp4 3 AM. 07:36 Patient has prior history of anxiety attacks. Patient is on citalopram and aripiprazole sp4 p.o.. Historical: - Home Meds: 05:15 amlodipine oral [Active]; aripiprazole oral [Active]; citalopram oral [Active]; vc1 - PMHx: 05:15 Anxiety; Depression; Hypertension; Kidney stones; PTSD; vc1 - PSHx: 05:15 Knee - Right (knee); Lithotripsy; vc1 - Immunization history:: Client reports having NOT received the Covid vaccine. Flu vaccine is not up to date. - Infectious Disease History:: Denies. - Social history:: Smoking status: Patient denies any tobacco usage or history of. - Family history:: not pertinent. ROS: 07:36 Constitutional: Negative for fever, chills, and weight loss, positive acute anxiety sp4 07:36 All other systems are negative, Exam: 07:36 Constitutional: This is a well developed, well nourished patient who is awake, alert, sp4 and in no acute distress. Head/Face: Normocephalic, atraumatic. Eyes: Pupils equal round and reactive to light, extra-ocular motions intact. Lids and lashes normal. Conjunctiva and sclera are not injected. Cornea within normal limits. Periorbital areas with no swelling, redness, or edema. ENT: Nares patent. No nasal discharge, no septal abnormalities noted. Tympanic membranes are normal and external auditory canals are clear. Oropharynx with no redness, swelling, or masses, exudates, or evidence of obstruction, uvula midline. Mucous membranes moist. Neck: Trachea midline, no thyromegaly or masses palpated, and no cervical lymphadenopathy. Supple, full range of motion without nuchal rigidity, or vertebral point tenderness. Chest/axilla: Normal chest wall appearance and motion. Nontender with no deformity. No lesions are appreciated. Cardiovascular: Regular rate and rhythm with a normal S1 and S2. No gallops, murmurs, or rubs. Normal PMI, no JVD. No pulse deficits. Respiratory: Lungs have equal breath sounds bilaterally, clear to auscultation and percussion. No rales, rhonchi or wheezes noted. No increased work of breathing, no retractions or nasal flaring. Abdomen/GI: Soft, with normal bowel sounds. No distension or tympany. No guarding or rebound. No evidence of tenderness throughout. Back: No spinal tenderness. No costovertebral tenderness. Skin: Warm, dry with normal turgor. Normal color with no rashes, no lesions, and no evidence of cellulitis. MS/ Extremity: Pulses equal, no cyanosis. Neurovascular intact. Full, normal range of motion. Neuro: Awake and alert, GCS 15, oriented to person, place, time, and situation. Cranial nerves II-XII grossly intact. Motor strength 5/5 in all extremities. Sensory grossly intact. Psych: Awake, alert, with orientation to person, place and time. Behavior, mood, and affect are within normal limits Vital Signs: 05:13 BP 159 / 103; Pulse 83; Resp 20; Temp 97.8; Pulse Ox 98% ; Weight 104.33 kg; Height 5 vc1 ft. 6 in. ; Pain 0/10; 06:30 BP 136 / 97; Pulse 61; Resp 17 S; Temp 98.4; Pulse Ox 98% on R/A; vc1 05:13 Body Mass Index 37.12 (104.33 kg, 167.64 cm) vc1 05:13 Pain Scale: Adult vc1 MDM: 05:27 Patient medically screened. sp4 07:37 Differential Diagnosis altered mental status, sepsis, flu, Acute panic attack. Data sp4 reviewed: vital signs, nurses notes, old medical records. ED course: Patient felt much improved after diazepam 5 mg p.o. Patient stable for discharge home with as needed clonazepam for anxiety attacks. Patient advised to see his psychiatrist for further management of anxiety. . Administered Medications: 05:24 Drug: Diazepam PO 5 mg PO once Route: PO; vc1 06:31 Follow up: Response: No adverse reaction; Marked relief of symptoms; Anxiety decreased; vc1 RASS: Alert and Calm (0) 06:19 CANCELLED (Physician Discretion): diazepam5 mg PO once pf1 Disposition Summary: 09/03/23 06:21 Discharge Ordered Notes: Location: Home sp4 Problem: new sp4 Symptoms: have improved sp4 Condition: Stable sp4 Diagnosis - Anxiety disorder, unspecified sp4 - Acute anxiety attack sp4 Followup: sp4 - With: Private Physician - When: 7 - 10 days - Reason: Recheck today's complaints Discharge Instructions: - Discharge Summary Sheet sp4 - Managing Anxiety, Adult sp4 Forms: - Patient Portal Instructions sp4 Prescriptions: - clonazepam 1 mg Oral tablet - take 1 tablet ORAL route daily PRN anxiety attack; 12 tablet; Refills: 0, sp4 Product Selection Permitted Signatures: Colette Faulkner RN RN vc1 Jermaine Cardoso MD MD sp4 Do Agustin RN pf1 Corrections: (The following items were deleted from the chart) 06:19 05:27 Diazepam PO 5 mg PO once ordered. sp4 pf1
--- NOTE | 2023-09-03 06:22 | ER ---
Nurse's Notes [facility] Name: Yobani Dang Age: 53 yrs Sex: Male : 1970 Arrival Date: 09/03/2023 Time: 04:37 Bed 8 Private MD: Diagnosis: Anxiety disorder, unspecified;Acute anxiety attack Presentation: 09/02 05:13 Chief complaint: Patient states: Had an znxiety attack around 0100. Its a little better vc1 now but still feeling anxious. Coronavirus screen: At this time, the client does not indicate any symptoms associated with coronavirus-19. Ebola Screen: Patient negative for fever greater than or equal to 101.5 degrees Fahrenheit, and additional compatible Ebola Virus Disease symptoms Patient denies exposure to infectious person. Patient denies travel to an Ebola-affected area in the 21 days before illness onset. No symptoms or risks identified at this time. Initial Sepsis Screen: Does the patient meet any 2 criteria? No. Patient's initial sepsis screen is negative. Does the patient have a suspected source of infection? No. Patient's initial sepsis screen is negative. Risk Assessment: Do you want to hurt yourself or someone else? Patient reports no desire to harm self or others. Onset of symptoms was September 03, 2023. Care prior to arrival: None. Activity prior to arrival: None. Mechanism of Injury: No Mechanism of Injury. Transition of care: patient was not received from another setting of care. 05:13 Method Of Arrival: Ambulatory vc1 05:13 Acuity: MOR 4 vc1 Triage Assessment: 05:18 General: Appears in no apparent distress. comfortable, Behavior is cooperative, vc1 anxious. Pain: Denies pain. EENT: No deficits noted. No signs and/or symptoms were reported regarding the EENT system. Neuro: Kumar Agitation-Sedation Scale (RASS): +1 Restless Level of Consciousness is awake, alert, obeys commands, Oriented to person, place, time, situation, Appropriate for age. Cardiovascular: No deficits noted. Respiratory: Airway is patent Respiratory effort is even, unlabored, Respiratory pattern is regular, symmetrical, Breath sounds are clear. GI: No deficits noted. No signs and/or symptoms were reported involving the gastrointestinal system. : No deficits noted. No signs and/or symptoms were reported regarding the genitourinary system. Derm: No deficits noted. No signs and/or symptoms reported regarding the dermatologic system. Skin is intact, is healthy with good turgor, Skin temperature is warm. Musculoskeletal: No deficits noted. No signs and/or symptoms reported regarding the musculoskeletal system. Historical: - Home Meds: 05:15 amlodipine oral [Active]; aripiprazole oral [Active]; citalopram oral [Active]; vc1 - PMHx: 05:15 Anxiety; Depression; Hypertension; Kidney stones; PTSD; vc1 - PSHx: 05:15 Knee - Right (knee); Lithotripsy; vc1 - Immunization history:: Client reports having NOT received the Covid vaccine. Flu vaccine is not up to date. - Infectious Disease History:: Denies. - Social history:: Smoking status: Patient denies any tobacco usage or history of. - Family history:: not pertinent. Screenin:17 [facility] ED Fall Risk Assessment (Adult) History of falling in the last 3 months, vc1 including since admission No falls in past 3 months (0 pts) Confusion or Disorientation No (0 pts) Intoxicated or Sedated No (0 pts) Impaired Gait No (0 pts) Mobility Assist Device Used No (0 pt) Altered Elimination No (0 pt) Score/Fall Risk Level 0 - 2 = Low Risk Oriented to surroundings, Maintained a safe environment, Educated pt \T\ family on fall prevention, incl call for assistance when getting out of bed. Abuse screen: Denies threats or abuse. Nutritional screening: No deficits noted. Tuberculosis screening: No symptoms or risk factors identified. Assessment: 05:13 General: see triage assessment. vc1 06:30 Reassessment: Patient appears in no apparent distress at this time. Patient and/or vc1 family updated on plan of care and expected duration. Pain level reassessed. Patient is alert, oriented x 3, equal unlabored respirations, skin warm/dry/pink. Patient states feeling better. Patient states symptoms have improved. Vital Signs: 05:13 BP 159 / 103; Pulse 83; Resp 20; Temp 97.8; Pulse Ox 98% ; Weight 104.33 kg; Height 5 vc1 ft. 6 in. ; Pain 0/10; 06:30 BP 136 / 97; Pulse 61; Resp 17 S; Temp 98.4; Pulse Ox 98% on R/A; vc1 05:13 Body Mass Index 37.12 (104.33 kg, 167.64 cm) vc1 05:13 Pain Scale: Adult vc1 ED Course: 04:44 Patient arrived in ED. gm2 05:02 Colette Faulkner, RN is Primary Nurse. vc1 05:04 Jermaine Cardoso MD is Attending Physician. sp4 05:15 Triage completed. vc1 05:17 Arm band placed on right wrist. vc1 05:17 Patient has correct armband on for positive identification. Bed in low position. Call vc1 light in reach. Pulse ox on. NIBP on. 06:30 No provider procedures requiring assistance completed. Patient did not have IV access vc1 during this emergency room visit. 06:31 Provided Education on: prescription. pf1 Administered Medications: 05:24 Drug: Diazepam PO 5 mg PO once Route: PO; vc1 06:31 Follow up: Response: No adverse reaction; Marked relief of symptoms; Anxiety decreased; vc1 RASS: Alert and Calm (0) 06:19 CANCELLED (Physician Discretion): diazepam5 mg PO once pf1 Medication: 05:17 VIS not applicable for this client. vc1 Outcome: 06:21 Discharge ordered by . sp4 06:30 Discharged to home ambulatory, vc1 06:30 Condition: stable 06:30 Discharge instructions given to patient, Instructed on discharge instructions, follow up and referral plans. medication usage, Demonstrated understanding of instructions, follow-up care, medications, Prescriptions given X 1, 06:31 Patient left the ED. vc1 Signatures: Colette Faulkner RN RN vc1 Do Agutsin RN RN pf1 Jermaine Cardoso MD MD sp4 Shalini Sims gm2
[2023-09-03 06:55] VITALS: BP 136/97; TEMP 98.4; O2SAT 98
== END 2023-09-03 06:31 | disposition home or self-care (01) ==
LOC: ER 04:37
DX: F41.0 Panic disorder [episodic paroxysmal anxiety] (principal); F41.9 Anxiety disorder, unspecified

== ENCOUNTER 2023-10-11 01:00 | Emergency (ER) | payer OTHER ==
--- OUTSIDE RECORDS SUMMARY | 2023-10-11 01:03 | XMS REPORT | Continuity of Care Document ---
Author Name Unknown Address [address] [facility] [address] [place] [address] [facility] Address [address] [facility] [address] [place] [address] Care Team Providers Care Music Composer Name Role Phone KYLEE REVELES Attending Clinician DR MYLA Corrigan Attending Clinician Carmen BERMEO, DR LANZA Admitting Clinician Carmen sousa Payers Payer Name Policy Type Policy Number Effective Date Expirati on Date Source [employer] MP [employer] SILVER: HMO BAIL AGENT 94 ON STAND 9 [id number] 2022 00:00:00 Allergies, Adverse Reactions, Alerts Allergy Name Allergy Type Status Severity Reaction(s) Onset Date Inactive Date Treating Clinician Comments Source No Known Allergie s DA Active U 07-13 00:00: 00 [facility] Encounters Start Date/Time End Date/Time Encounter Type Admission Type Attending Clinicians Care Facility Care Department Encounter ID Source 2023-03-14 13:47:13 2023-03-14 13:47:13 Outpatient [facility] [id number] Jose Ramon Rodríguez 2022-10-31 15:15:00 2022-10-31 15:15:00 Outpatient KYLEE REVELES [id number] Nette Chiang 2022-10-16 08:15:00 2022-10-16 08:15:00 Outpatient KYLEE REVELES [id number] Nette zoraida 2022-04-16 16:57:53 2022-04-16 16:57:53 Outpatient [facility] [id number] Jose Ramon Rodríguez 2017-08-23 23:29:00 2017-08-25 15:41:00 Inpatient MYLA [facility] [id number] [facility] Results Test Description Test Time Test Comments Results Result Co mments Source XR ELBOW LEFT COMPLETE 3 VIEWS 2017-08-25 14:35:53 Left Elbow, 3 viewsLocation Code: Q5SLKNOVCH HISTORY: M25.522: PAIN IN LEFT ELBOWCOMMENTS: AP, lateral, and oblique views of the left elbow demonstrate no acutefracture or malalignment. The soft tissues are unremarkable.IMPRESS ION: No acute radiographic abnormality. BASIC METABOLIC [id number] 04:31:00* Test Item Value Reference Range Interpretation [...] = 09D) 8.1 mg/dL 8.3-9.5 L CARDIAC [id number] 06:29:00* Test Item Value Reference Range Interpretation Comme nts TROPONIN I (test code = A84) 0.026 ng/mL 0.000-0.045 CKMB (test code = A49) 3.4 ng/mL <=3.6 CPK (test code = 32A) 6493 IU/L 39-308 H BASIC METABOLIC [id number] 06:08:00* Test Item Value Reference Range Interpretation [...] MORPH (test code = RBCMOR) NORMAL CARDIAC [id number] 22:59:00* Test Item Value Reference Range Interpretation Comme nts TROPONIN I (test code = A84) 0.030 ng/mL 0.000-0.045 CKMB (test code = A49) 4.2 ng/mL <=3.6 HH CPK (test code = 32A) 22376 IU/L 39-[address] HEAD W/O [id number] 22:45:39CT HEAD W/O CONTRASTLocation: A8Naolo hours services provided 08/23/2017 10:45 PMIndication: R51: [...] arrival at the facility.XR CHEST 1 VIEW [id number] 22:42:10XR CHEST 1 VIEW PORTABLELocation:N5Tydih hours services provided 08/23/2017 10:41 PMIndication:[id number]: Chest painComparison:Not availableFindings:The lungs are equally and symmetrically inflated. The trachea ismidline. The cardiac silhouette is normal in size. No acute bony abnormality.Impression:No acute cardiopulmonary disease.AMYLASE AND [id number] 22:31:00* Test Item Value Reference Range Interpretation Comme nts AMYLASE (test code = 10A) 39 U/L 28-100 LIPASE (test code = 60A) 176 IU/L 73-393 COMPREHENSIVE METABOLIC [id number] 22:31:00* Test Item Value Reference Range Interpretation [...] Notes Date/Time Note Provider Source 2018-07-13 01:07:00 [id number]+OlfcXDlG [id number]/[id number]:07 :00 [facility])EMERGENCY PROVIDER REPORTREPORT#:[id number] REPORT STATUS: SignedDATE:07/13/18 TIME:106 PATIENT: ALVARO MCFARLAND UNIT #: [id number]#: [id number] ROOM/BED:: 71 AGE: 48 SEX: M PCP PHYS: No Primary or Family PhysicianSERVICE AUTHOR: Kat Pascal MD * ALL edits or amendments must be made on the electronic/computer document * HPI-Dyspnea/Wheezing GeneralConfirmed Patient YesPatient Type New patientInitial Greet Date/Time 07/13/18106 PresentationChief Complaint Chest pain, Congestive heart failure, Shortness of breathHx Obtained From Patient, Rehabilitation Therapy Aide)( Sudden in Onset? YesSymptom Duration Since onsetProgression since Onset Gradually improvingSeverity: Onset ModerateSeverity: Current ModerateAssociated withReports: Chest pain. Denies: Cough, Diaphoresis, Fever, Leg pain, Leg swelling,Nausea, Vomiting. Exacerbated by NothingRelieved by Nothing Free Text HPI NotesFree Text HPI Wnchz11ph HM with PMH of CAD, CHF, and HTN p/w chest pain and SOB since this AM. Preceded by lightheadedness and dizziness. Associated with SOB. Exacerbated whenhe was stopped for shoplifting at [employer] (sandwich, bag of popcorn, and ice cream). [...] Cardiac dysfunction, Respiratory dysfunction, Mental impairment Quality Kbjledoa26-Fywe ECG for CP Performed documented Supervising Physician [...] 07/13/18 at 0337 at 0347 RPT #: [id number] OF REPORTEDEmerwadley regional medical center department johjag2063-78-88V64:07:00L.[id number] ilable for patient [id number]:47:20 [facility] 2018-07-13 01:01:00 [id number] [id number]+z39EAwoQ/[id number]:01 :[id number] [facility] [address] [place] [address] PATIENT NAME: ALVARO MCFARLAND ADMIT DATE: 07/13/18ACCOUNT NO: [id number] ROOM NO: AGE: 48 REPORT TYPE: eELECTROCARDIOGRAM SEX: M ADMITTING PHYSICIAN: ATTENDING PHYSICIAN: Order:[id number] Reason : (Not Selected) Test Date/Time Stamp:FriJul [...] MD at 0031 PATIENT NAME: ALVARO MCFARLAND .[id number] AVAvailable for patient [id number]:30:56 [facility]
--- NOTE | 2023-10-11 01:25 | EDPHYS ---
Physician Documentation [facility] Name: Yobani Dang Age: 53 yrs Sex: Male : 1970 Arrival Date: 10/11/2023 Time: 01:00 Bed 18 Private MD: ED Physician Kailash Almodovar HPI: 10/10 02:32 This 53 yrs old Male presents to ER via Ambulatory with complaints of rt Toothache. 02:32 Patient presents to the ED with a left lower dental pain starting this afternoon. rt Patient was unable to get in with a dentist. Denies any difficulty swallowing, fevers. Denies other acute complaints, symptoms are mild in severity, no other aggravating or alleviating factors.. Historical: - Allergies: 01:20 No Known Allergies; cm10 - PMHx: 01:20 Anxiety; Depression; Hypertension; Kidney stones; PTSD; cm10 - PSHx: 01:20 Knee - Right (knee); Lithotripsy; cm10 - Immunization history:: Adult Immunizations up to date. - Infectious Disease History:: Denies. - Social history:: Smoking status: Patient denies any tobacco usage or history of. - Family history:: not pertinent. ROS: 02:32 Constitutional: Negative for fever, chills, and weight loss, Cardiovascular: Negative rt for chest pain, palpitations, and edema, Respiratory: Negative for shortness of breath, cough, wheezing, and pleuritic chest pain, Abdomen/GI: Negative for abdominal pain, nausea, vomiting, diarrhea, and constipation, Skin: Negative for injury, rash, and discoloration, Neuro: Negative for headache, weakness, numbness, tingling, and seizure, 02:32 ENT: Positive for dental pain, Negative for difficulty swallowing, Exam: 02:32 Constitutional: This is a well developed, well nourished patient who is awake, alert, rt and in no acute distress. Head/Face: Normocephalic, atraumatic. Chest/axilla: Normal chest wall appearance and motion. Nontender with no deformity. No lesions are appreciated. Cardiovascular: Regular rate and rhythm with a normal S1 and S2. No gallops, murmurs, or rubs. Normal PMI, no JVD. No pulse deficits. Respiratory: Lungs have equal breath sounds bilaterally, clear to auscultation and percussion. No rales, rhonchi or wheezes noted. No increased work of breathing, no retractions or nasal flaring. Abdomen/GI: Soft, non-tender, with normal bowel sounds. No distension or tympany. No guarding or rebound. No evidence of tenderness throughout. Skin: Warm, dry with normal turgor. Normal color with no rashes, no lesions, and no evidence of cellulitis. MS/ Extremity: Pulses equal, no cyanosis. Neurovascular intact. Full, normal range of motion. Neuro: Awake and alert, GCS 15, oriented to person, place, time, and situation. Cranial nerves II-XII grossly intact. Motor strength 5/5 in all extremities. Sensory grossly intact. Cerebellar exam normal. Normal gait. 02:32 ENT: Multiple dental caries noted, no tongue swelling, uvula is midline. Vital Signs: 01:19 BP 137 / 88; Pulse 87; Resp 18; Temp 98(O); Pulse Ox 97% on R/A; Weight 104.33 kg; cm10 Height 5 ft. 6 in. ; Pain 9/10; 01:55 BP 142 / 89; Pulse 76; Resp 17 S; Pulse Ox 96% on R/A; jw7 01:19 Body Mass Index 37.12 (104.33 kg, 167.64 cm) cm10 01:19 Pain Scale: Adult cm10 MDM: 01:18 Patient medically screened. rt 02:32 Differential diagnosis: dental caries, dental abscess. Data reviewed: vital signs, rt nurses notes. I considered the following discharge prescriptions or medication management in the emergency department Medications were administered in the Emergency Department. See MAR. Test considered but Not performed: CT: No signs or symptoms to suggest RPA, ART SUPERVISOR, Justen's angina, CT scan is not indicated.. Care significantly affected by the following chronic conditions: Hypertension. Counseling: I had a detailed discussion with the patient and/or guardian regarding the historical points, exam findings, and any diagnostic results supporting the discharge/admit diagnosis, the need for outpatient follow up, to return to the emergency department if symptoms worsen or persist or if there are any questions or concerns that arise at home. Response to treatment: the patient's symptoms have mildly improved after treatment. Administered Medications: 01:45 Drug: Amoxicillin PO 875 mg PO once Route: PO; jw7 01:52 Follow up: Response: No adverse reaction; Medication administered at discharge. jw7 01:45 Drug: Ketorolac IM 15 mg IM once Route: IM; Site: right deltoid; jw7 01:52 Follow up: Response: No adverse reaction; Medication administered at discharge. jw7 01:45 Drug: HYDROcodone-acetaminophen PO 5 mg-325 mg 1 tabs PO once Route: PO; jw7 01:53 Follow up: Response: No adverse reaction; Medication administered at discharge. jw7 Disposition Summary: 10/11/23 01:24 Discharge Ordered Notes: Location: Home rt Problem: new rt Symptoms: have improved rt Condition: Stable rt Diagnosis - Dental caries, unspecified rt Followup: rt - With: Private Physician - When: 2 - 3 days - Reason: Discharge Instructions: - Discharge Summary Sheet rt - Dental Caries, Adult rt Forms: - Medication Reconciliation Form rt - Antibiotic Education rt - Prescription Opioid Use rt - Patient Portal Instructions rt - Leadership Thank You Letter rt Prescriptions: - Amoxicillin 875 mg Oral Tablet - take 1 tablet ORAL route every 12 hours for 10 days; 20 tablet; Refills: 0, rt Product Selection Permitted - Tramadol 50 mg Oral Tablet - take 1 tablet ORAL route every 8 hours as needed; 12 tablet; Refills: 0, rt Product Selection Permitted Signatures: Sri Werner RN RN jw7 Kailash Almodovar MD MD rt Apolonia Baldwin, RN RN cm10
--- NOTE | 2023-10-11 01:25 | ER ---
Nurse's Notes [facility] Name: Yobani Dang Age: 53 yrs Sex: Male : 1970 Arrival Date: 10/11/2023 Time: 01:00 Bed 18 Private MD: Diagnosis: Dental caries, unspecified Presentation: 10/10 01:19 Chief complaint: Patient states: tooth pain to the bottom left side onset at 0330. cm10 Coronavirus screen: Vaccine status: Patient reports receiving the 2nd dose of the covid vaccine. Client denies travel out of the [place] in the last 14 days. At this time, the client does not indicate any symptoms associated with coronavirus-19. Ebola Screen: Patient denies travel to an Ebola-affected area in the 21 days before illness onset. No symptoms or risks identified at this time. Initial Sepsis Screen: Does the patient meet any 2 criteria? No. Patient's initial sepsis screen is negative. Does the patient have a suspected source of infection? No. Patient's initial sepsis screen is negative. Risk Assessment: Do you want to hurt yourself or someone else? Patient reports no desire to harm self or others. Onset of symptoms was October 11, 2023. 01:19 Method Of Arrival: Ambulatory cm10 01:19 Acuity: MOR 4 cm10 Triage Assessment: 01:20 General: Appears in no apparent distress. comfortable, Behavior is calm, cooperative. cm10 Pain: Complains of pain in lower left second bicuspid Pain currently is 9 out of 10 on a pain scale. EENT: Poor dentition noted. Reports pain in lower left second bicuspid. Neuro: No deficits noted. Level of Consciousness is awake, alert, obeys commands, Oriented to person, place, time, situation, Appropriate for age. Respiratory: No deficits noted. Airway is patent Respiratory effort is even, unlabored, Respiratory pattern is regular, symmetrical. Derm: No deficits noted. Skin is healthy with good turgor, Skin is pink, warm \T\ dry. Musculoskeletal: No deficits noted. Range of motion: intact in all extremities. Historical: - Allergies: 01:20 No Known Allergies; cm10 - PMHx: 01:20 Anxiety; Depression; Hypertension; Kidney stones; PTSD; cm10 - PSHx: :20 Knee - Right (knee); Lithotripsy; cm10 - Immunization history:: Adult Immunizations up to date. - Infectious Disease History:: Denies. - Social history:: Smoking status: Patient denies any tobacco usage or history of. - Family history:: not pertinent. Screenin:25 [facility] ED Fall Risk Assessment (Adult) History of falling in the last 3 months, jw7 including since admission No falls in past 3 months (0 pts) Confusion or Disorientation No (0 pts) Intoxicated or Sedated No (0 pts) Impaired Gait No (0 pts) Mobility Assist Device Used No (0 pt) Altered Elimination No (0 pt) Score/Fall Risk Level 0 - 2 = Low Risk Oriented to surroundings, Maintained a safe environment, Educated pt \T\ family on fall prevention, incl call for assistance when getting out of bed. Abuse screen: Denies threats or abuse. Denies injuries from another. Nutritional screening: No deficits noted. Tuberculosis screening: No symptoms or risk factors identified. Assessment: 01:25 General: Appears in no apparent distress. uncomfortable, Behavior is calm, cooperative. jw7 01:25 Pain: Complains of pain in lower left second bicuspid Pain does not radiate. Pain jw7 currently is 8 out of 10 on a pain scale. Quality of pain is described as throbbing, Pain began gradually, Is continuous. Neuro: Level of Consciousness is awake, alert, obeys commands, Oriented to person, place, time, situation. Cardiovascular: Capillary refill < 3 seconds Clubbing of nail beds is absent JVD is absent Patient's skin is warm and dry. Respiratory: Airway is patent Trachea midline Respiratory effort is even, unlabored, Respiratory pattern is regular, symmetrical. GI: Abdomen is round non-distended, Bowel sounds present X 4 quads. Abd is soft and non tender X 4 quads. : No deficits noted. No signs and/or symptoms were reported regarding the genitourinary system. EENT: No deficits noted. No signs and/or symptoms were reported regarding the EENT system. Derm: Skin is intact, is healthy with good turgor, Skin is dry, Skin is normal, Skin temperature is warm. Musculoskeletal: Circulation, motion, and sensation intact. Range of motion: intact in all extremities. Vital Signs: 01:19 BP 137 / 88; Pulse 87; Resp 18; Temp 98(O); Pulse Ox 97% on R/A; Weight 104.33 kg; cm10 Height 5 ft. 6 in. ; Pain 9/10; 01:55 BP 142 / 89; Pulse 76; Resp 17 S; Pulse Ox 96% on R/A; jw7 01:19 Body Mass Index 37.12 (104.33 kg, 167.64 cm) cm10 01:19 Pain Scale: Adult cm10 ED Course: 01:03 Patient arrived in ED. im 01:06 Kailash Almodovar MD is Attending Physician. rt 01:15 Sri Werner, RN is Primary Nurse. jw7 01:20 Triage completed. cm10 01:21 Arm band placed on Patient placed in an exam room, on a stretcher, on pulse oximetry. cm10 01:25 Patient has correct armband on for positive identification. Bed in low position. Call jw7 light in reach. Provided Education on: Use of Call Light. 01:25 No provider procedures requiring assistance completed. Patient did not have IV access jw7 during this emergency room visit. Administered Medications: 01:45 Drug: Amoxicillin PO 875 mg PO once Route: PO; jw7 01:52 Follow up: Response: No adverse reaction; Medication administered at discharge. jw7 01:45 Drug: Ketorolac IM 15 mg IM once Route: IM; Site: right deltoid; jw7 01:52 Follow up: Response: No adverse reaction; Medication administered at discharge. jw7 01:45 Drug: HYDROcodone-acetaminophen PO 5 mg-325 mg 1 tabs PO once Route: PO; jw7 01:53 Follow up: Response: No adverse reaction; Medication administered at discharge. jw7 Medication: 01:55 VIS not applicable for this client. jw7 Outcome: 01:24 Discharge ordered by . rt 01:55 Discharged to home ambulatory, jw7 01:55 Condition: stable 01:55 Discharge instructions given to patient, Instructed on discharge instructions, follow up and referral plans. medication usage, Demonstrated understanding of instructions, follow-up care, medications, Prescriptions given X 2, 01:55 Patient left the ED. jw7 Signatures: Sri Werner, RN RN jw7 Kailash Almodovar MD MD rt Sherlyn Dinero Clarissa, RN RN cm10
[2023-10-11] MEDS ORDERED: HYDROCODONE/APAP 5/325 MG TAB ONE (01:38)
[2023-10-11] MEDS ORDERED: KETOROLAC 30 MG/ML INJ ONE (01:38)
[2023-10-11] MEDS ORDERED: AMOX/K CLAV 875 MG TAB ONE (01:39)
[2023-10-11 02:15] VITALS: BP 142/89; TEMP 98; O2SAT 96
== END 2023-10-11 01:55 | disposition home or self-care (01) ==
LOC: ER 01:00
DX: K02.9 Dental caries, unspecified (principal)
CPT/HCPCS: 96372; 99284

== ENCOUNTER 2025-03-03 21:23 | Emergency (ER) | payer OTHER ==
--- OUTSIDE RECORDS SUMMARY | 2025-03-03 21:26 | XMS REPORT | Continuity of Care Document ---
Author Name Unknown Address [address] [facility] [address] [place] [address] [facility] Address [address] [facility] 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 94 ON STAND 9 [id number] 2022 00:00:00 Allergies, Adverse Reactions, Alerts Allergy Name Allergy Type Status Severity Reaction(s) Onset Date Inactive Date Treating Clinician Comments Source No Known Allergie s DA Active U 07-13 00:00: 00 [facility] Encounters Start Date/Time End Date/Time Encounter Type Admission Type Attending Clinicians Care Facility Care Department Encounter ID Source 2023-10-21 13:42:38 2023-10-21 13:42:38 Outpatient [facility] [id number] Jose Ramon Rodríguez 2023-03-14 13:47:13 2023-03-14 13:47:13 Outpatient [id number] [id number] Jose Ramon Rodríguez 2022-10-31 15:15:00 2022-10-31 15:15:00 Outpatient KYLEE REVELES [id number] Nette Chiang 2022-10-16 08:15:00 2022-10-16 08:15:00 Outpatient KYLEE REVELES [id number] Nette Chiang 2022-04-16 16:57:53 2022-04-16 16:57:53 Outpatient [facility] [id number] Jose Ramon Rodríguez 2017-08-23 23:29:00 2017-08-25 15:41:00 Inpatient E MYLA BERMEO [facility] [id number] [facility] Results Test Description Test Time Test Comments Results Result Co mments Source XR ELBOW LEFT COMPLETE 3 VIEWS 2017-08-25 14:35:53 Left Elbow, 3 viewsLocation Code: [id number] HISTORY: M25.522: PAIN IN LEFT ELBOWCOMMENTS: AP, lateral, and oblique views of the left elbow demonstrate no acutefracture or malalignment. The soft tissues are unremarkable.IMPRESS ION: No acute radiographic abnormality. BASIC METABOLIC [id number] 04:31:00* Test Item Value Reference Range Interpretation [...] = 09D) 8.1 mg/dL 8.3-9.5 L CARDIAC [id number] 06:29:00* Test Item Value Reference Range Interpretation Comme nts TROPONIN I (test code = A84) 0.026 ng/mL 0.000-0.045 CKMB (test code = A49) 3.4 ng/mL <=3.6 CPK (test code = 32A) 6493 IU/L 39-308 H BASIC METABOLIC [id number] 06:08:00* Test Item Value Reference Range Interpretation [...] MORPH (test code = RBCMOR) NORMAL CARDIAC [id number] 22:59:00* Test Item Value Reference Range Interpretation Comme nts TROPONIN I (test code = A84) 0.030 ng/mL 0.000-0.045 CKMB (test code = A49) 4.2 ng/mL <=3.6 HH CPK (test code = 32A) 82939 IU/L 39-[address] HEAD W/O [id number] 22:45:39CT HEAD W/O CONTRASTLocation: [id number] hours services provided 08/23/2017 10:45 PMIndication: R51: [...] arrival at the facility.XR CHEST 1 VIEW [id number] 22:42:10XR CHEST 1 VIEW PORTABLELocation:[id number] hours services provided 08/23/2017 10:41 PMIndication:[id number]: Chest painComparison:Not availableFindings:The lungs are equally and symmetrically inflated. The trachea ismidline. The cardiac silhouette is normal in size. No acute bony abnormality.Impression:No acute cardiopulmonary disease.AMYLASE AND [id number] 22:31:00* Test Item Value Reference Range Interpretation Comme nts AMYLASE (test code = 10A) 39 U/L 28-100 LIPASE (test code = 60A) 176 IU/L 73-393 COMPREHENSIVE METABOLIC [id number] 22:31:00* Test Item Value Reference Range Interpretation [...] Notes Date/Time Note Provider Source 2018-07-13 01:07:00 [facility] ([facility]) EMERGENCY PROVIDER REPORT REPORT#:[id number] REPORT STATUS: Signed DATE:07/13/18 TIME:106 PATIENT: ALVARO MCFARLAND UNIT #: [id number] ROOM/BED: : 71 AGE: 48 SEX: M PCP PHYS: No Primary or Family Physician SERVICE AUTHOR: Kat Pascal MD * ALL edits or amendments must be made on the electronic/computer document * HPI-Dyspnea/Wheezing General Confirmed Patient Yes Patient Type New patient Initial Greet Date/Time 07/13/18106 Presentation Chief Complaint Chest pain, Congestive heart failure, Shortness of breath Hx Obtained From Patient, Ssds Mk 2 Advanced Operator )( Sudden in Onset? Yes Symptom Duration Since onset Progression since Onset Gradually improving Severity: Onset Moderate Severity: Current Moderate Associated with Reports: Chest pain. Denies: Cough, Diaphoresis, Fever, Leg pain, Leg swelling, Nausea, Vomiting. Exacerbated by Nothing Relieved by Nothing Free Text HPI Notes Free Text HPI Notes 48yo HM with PMH of CAD, CHF, and HTN p/w chest pain and SOB since this AM. Preceded by lightheadedness and dizziness. Associated with SOB. Exacerbated when he was stopped for shoplifting at [employer] (sandwich, bag of popcorn, and ice cream). Noted to be hypertensive on EMS arrival (185/120); given 20mg IV Labetalol en route to ER with improvement in symptoms. Pt now states symptoms remain present, but improved. Denies RICHARDSON, syncope, or N/V/D. Portions of this section were scribed by Luisito Estrella on 07/13/18 at 0337 Review of Systems ROS Statements All systems rev neg except as marked. Focused Review of Systems Constitutional Denies: Chills, Lethargy. Portions of this section were scribed by Luisito Estrella on 07/13/18 at 0107 Past Medical History - Adult Stated Complaint CHEST PAIN Allergies Coded Allergies: No Known Allergies (07/13/18) Review of Nursing Notes Rev avail, and agree Smoking status for patients 13 years old or older: Never Smoker Portions of this section were scribed by Luisito Estrella on 07/13/18 at 0107 Physical Exam Vital Signs Vital Signs First Documented: Result Date Time Pulse Ox 100 [...] 99 Review of Vital Signs Reviewed Focused PE General/Const General/Const Awake, Alert, No acute distress, Cooperative, Not toxic appearing Ears/Nose/Throat Ears/Nose/Throat Mucous membranes moist MS Neck Neck Atraumatic, Supple, No meningismus, Full range of motion Resp/Chest Respiratory/Chest Atraumatic, Breath sounds NL, Breath sounds = bilat, No respiratory distress Cardiovascular Cardiovascular Heart rate NL, Regular rhythm, Heart sounds NL, Peripheral circulation NL Abdomen/GI Abdomen/GI Soft, Non-tender, No distention Skin Skin Warm, Dry, Intact Neurologic Neurologic Oriented X3, Speech NL Portions of this section were scribed by Luisito Estrella on 07/13/18 at 0337 Interpretation Diagnostics Point of Care Testing Pulse Oximetry Pulse Ox % 100 On: Room air Interpretation Interpreted by me, Pulse oximetry normal Time 0100 Portions of this section were scribed by Luisito Estrella on 07/13/18 at 0107 Re-Evaluation MDM Free Text MDM Notes Free Text MDM Notes A/P: 48yo HM with PMH as above p/w chest pain and SOB 1. Labs 2. CXR 3. EKG 4. Re-assess ADDENDUM Time: 104 Immediately after concluding interview, Pt states that he wants to leave AMA - does not give reasoning. Pt has capacity to make this decision. Will remove IV and Pt to leave in police custody. Pt re-assessed; symptoms improved. Results of work-up d/w Pt; voiced understanding. OK for DC home with PCP follow-up. )( Re-Evaluation/Progress #1 Time of Re-Eval 010 )( Re-Eval Status Unchanged Plan Post Re-Eval AMA Differential Diagnosis Differential Diagnosis Acute coronary syndrome, Congestive heart failure, Panic attack Patient Discharge Departure Vital Signs/Condition Vital Signs First Documented: Result Date Time Pulse Ox 100 07/130 B/P 148/98 07/13 0100 B/P Mean 114 07/13 0100 O2 Delivery Room air 07/13 99 Temp 98.3 07/13 99 Pulse 96 07/13 99 Resp 15 07/13 99 Last Documented: Result Date Time Pulse Ox 100 07/13 0100 B/P 148/98 07/13 0100 B/P Mean 114 07/13 0100 O2 Delivery Room air 07/13 99 Temp 98.3 07/13 0100 Pulse 96 07/13 99 Resp 15 07/130 All vital signs available at the time of this entry have been reviewed. Condition Stable Clinical Impression Clinical Impression Primary Impression: Left sided chest pain Secondary Impressions: ARRESTED FOR SHOPLIFTING, Malignant hypertension Disposition Decision Other )( Time 0108 )( Date 07/13/18 Against Medical Advice Yes Discharge/Care Plan Counseled Regarding When to return to ED Against Medical Advice AMA Note 1 Pt has decided to leave our facility against medical advice. I have assessed the patient's ability to make an informed decision and it is my opinion at this time that the patient has the medical decision-making capacity to comprehend information regarding current medical condition and appreciates the impact of the disease or condition and the consequences of various options for treatment, including foregoing treatment. The patient possesses the ability to evaluate all treatment options, compare the risks and benefits of each option, communicate choice in a consistent manner over time, and is able to make rational choices. I have explained to the patient further testing, treatment, and evaluation I would like to perform during the current emergency department [...] care at our facility. AMA Request from Patient Cognition Alert, Oriented X 3, Answers appropriate, Speaks coherently, Thought process intact, Understands AMA Competent to Decide Yes Reason for leaving AMA Refused to stay Discussed Options to AMA Yes Present for Explanation Myself, Nurse Risk Info Explained Possibility of , Permanent disability, Chronic pain, Worsening of condition, Neurological dysfunction, Cardiac dysfunction, Respiratory dysfunction, Mental impairment Quality Measures 12-Lead ECG for CP Performed documented Supervising Physician Note Scribe Statement Luisito Estrella, 07/13/18 0337, scribing for and in the presence of Dr. Pascal. Signed By: Luisito Estrella, 07/13/18 0337 Provider Scribed Statement I personally performed the services described in this documentation and reviewed the documentation that was dictated to the scribe(s) in my presence, and it accurately records my words and actions. Kat Pascal, 07/13/18 Portions of this section were scribed by Luisito Estrella on 07/13/18 at 0337 at 0347 RPT #: [id number] END OF REPORT [facility] 2018-07-13 01:01:00 [id number] [facility] [id number] [place] [id number] PATIENT NAME: ALVARO MCFARLAND ADMIT DATE: 07/13/18 ACCOUNT NO: [id number] ROOM NO: AGE: 48 REPORT TYPE: eELECTROCARDIOGRAM SEX: M ADMITTING PHYSICIAN: ATTENDING PHYSICIAN: Order: [id number] Test Reason : (Not Selected) Test Date/Time Stamp: FriJul 13 2018 01:01:26 Blood Pressure : / mmHG Vent. Rate : 097 BPM Atrial Rate : 097 BPM P-R Int : 136 ms QRS Dur : 098 ms QT Int : 360 ms P-R-T Axes : 048 007 044 degrees QTc Int : 457 ms Normal sinus rhythm Normal ECG No previous ECGs available Confirmed by ARNOLD OROURKE MD ([id number]) on 07/17/2018 12:31:14 AM Referred By: Self Referred Confirmed by:ARNOLD OROURKE MD at 0031 PATIENT NAME: ALVARO MCFARLAND [facility]
[2025-03-03] MEDS ORDERED: MORPHINE 4 MG/ML SYR ONE (22:32)
[2025-03-03] MEDS ORDERED: ONDANSETRON 4 MG/2 ML VIAL ONE (22:32)
[2025-03-03 22:54] LABS: Absolute Lymphocytes (CBC) 2.0 K/uL (0.7-4.9); Hematocrit 42.6 % (39.6-49.0); Hemoglobin 14.6 g/dL (13.6-17.9); MCH 30.3 pg (27.0-35.0); MCHC 34.3 g/dL (32.0-36.0); MCV 88.4 fL (80-100); MPV 7.5 fL (7.6-11.3); Nucleated RBC Absolute Count 0.0 (0-0); Nucleated Red Blood Cells % 0.1 % (0-0); RBC Red Blood Cell Count 4.82 M/uL (4.33-5.43); White Blood Count 7.10 thou/uL (4.3-10.9)
[2025-03-03 23:07] LABS: ALT/SGPT 52.0 U/L (16-61); AST/SGOT 21.0 U/L (15-37); Albumin 3.3 g/dL (3.4-5.0); Albumin/Globulin Ratio 0.8 (1.1-1.8); Alkaline Phosphatase 90.0 U/L (45-117); Anion Gap 7.8 mEq/L (5.0-15.0); BUN Blood Urea Nitrogen 22.0 mg/dL (7-18); Globulin 3.9 g/dL (2.3-3.5); Glucose Level 107.0 mg/dL (74-106); Lipase 53.0 U/L (13-75); Potassium 3.8 mEq/L (3.5-5.1)
--- NOTE | 2025-03-04 00:52 | RAD REPORT ---
EXAM: CT Abdomen and Pelvis With Intravenous Contrast CLINICAL HISTORY: The patient is 55 years old and is Male; rectal pain TECHNIQUE: Axial computed tomography images of the abdomen and pelvis with intravenous contrast. Sagittal an d coronal reformatted images were created and reviewed. This CT exam was performed using one or more of the following dose reduction techniques: automated exposure control, adjustment of the mA a nd/or kV according to patient size, and/or use of iterative reconstruction technique. COMPARISON: August 31, 2022 FINDINGS: LUNG BASES: Minimal dependent densities in the lung bases are present. No consolidation. ABDOMEN: LIVER: The liver is enlarged and fatty. GALLBLADDER AND BILE DUCTS: The gallbladder slightly contracted. No calcified gallstones or ducta l dilatation is seen. PANCREAS: No ductal dilation. No mass. SPLEEN: Unremarkable. ADRENALS: A 2.3 cm left adrenal gland nodule with a Hounsfield unit of 45 is present. The right a drenal gland is normal. KIDNEYS AND URETERS: A punctate left intrarenal calcification is present. The kidneys enhance symme trically. No obstructing renal or ureteral calculus is seen. No hydronephrosis or hydroureter. No perinephric fluid or stranding. STOMACH AND BOWEL: Stomach is distended with food contents. The small bowel is normal in caliber. A moderate amount of stool is present throughout the colon. There is no mucosal thickening or evidence of obstruction. PELVIS: APPENDIX: No findings to suggest acute appendicitis. BLADDER: Unremarkable. No mass. REPRODUCTIVE: The prostate is enlarged and slightly heterogeneous. ABDOMEN and PELVIS: INTRAPERITONEAL SPACE: Unremarkable. No free air. No significant fluid collection. BONES/JOINTS: No acute fracture. SOFT TISSUES: The soft tissues are normal. VASCULATURE: Unremarkable. No abdominal aortic aneurysm. LYMPH NODES: Unremarkable. No enlarged lymph nodes. IMPRESSION: 1. No acute findings on this contrasted CT of the abdomen and pelvis to explain the patient's sympt oms. 2. 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 Recommend adrenal washout CT or chemi sammy shift MRI. JACR 2017 Dec; 14(8):1038-44, JCAT 2016 Jul-Aug; 40(2):194-200, Urol J spring; 3(2):71-4. Electronically signed by: Shirlene Calloway MD 03/04/2025 12:48 AM CDT RP Due to temporary technical issues with the PACS/Musationse reporting system, reports are being bar d by the in-house radiologist without review as a courtesy to ensure prompt reporting the interpreting radiologist is fully responsible for the content of the report. Transcribed Date/Time: 03/04/2025 12:52 AM
--- NOTE | 2025-03-04 01:10 | EDPHYS ---
Physician Documentation [facility] Name: Yobani Dang Age: 55 yrs Sex: Male : 1970 Arrival Date: 03/03/2025 Time: 21:23 Bed 6 Private MD: Chuck Roland ED Physician Kyrie Rowley HPI: 03/03 22:25 This 55 yrs old Male presents to ER via Ambulatory with complaints of cp Hemorrhoids. 22:25 The patient presents to the emergency department with pain in the rectal area, that is cp severe. Onset: The symptoms/episode began/occurred yesterday, and became worse today. Associate signs and symptoms: Pertinent positives: rash of inner thighs and scrotum, Pertinent negatives: abdominal pain, constipation, diarrhea, fever, blood in stools. 22:25 Patient presents to ED with c/o rectal pain and large hemorrhoid. cp Historical: - Allergies: 21:35 No Known Allergies; dd2 - PMHx: 21:35 Anxiety; Depression; Hypertension; Kidney stones; PTSD; dd2 - PSHx: 21:35 Knee - Right (knee); Lithotripsy; dd2 - Immunization history:: Adult Immunizations up to date. - Infectious Disease History:: Denies. - Social history:: Smoking status: Patient denies any tobacco usage or history of. ROS: 22:30 Constitutional: Negative for body aches, chills, fever, poor PO intake, cp 22:30 Eyes: Negative for injury, pain, redness, and discharge, cp 22:30 ENT: Negative for drainage from ear(s), ear pain, sore throat, difficulty swallowing, difficulty handling secretions, 22:30 Abdomen/GI: Positive for rectal pain, Negative for abdominal pain, vomiting, diarrhea, constipation, 22:30 Skin: Positive for rash, of the inner thighs and scrotum, 22:30 All other systems are negative, Exam: 22:33 Constitutional: The patient appears in no acute distress, alert, awake, cp non-diaphoretic, non-toxic, well developed, well nourished, in obvious pain, uncomfortable, 22:33 Head/Face: Normocephalic, atraumatic. cp 22:33 Eyes: Periorbital structures: appear normal, Conjunctiva: normal, no exudate, no injection, Sclera: no appreciated abnormality, Lids and lashes: appear normal, bilaterally, 22:33 ENT: External ear(s): are unremarkable, Nose: is normal, Mouth: Lips: moist, Oral mucosa: moist, Posterior pharynx: Airway: no evidence of obstruction, patent, 22:33 Chest/axilla: Inspection: normal, 22:33 Cardiovascular: Rate: normal, Rhythm: regular, 22:33 Respiratory: the patient does not display signs of respiratory distress, Respirations: normal, no use of accessory muscles, no retractions, labored breathing, is not present, Breath sounds: are clear throughout, no decreased breath sounds, no stridor, no wheezing, 22:33 Abdomen/GI: Inspection: abdomen appears normal, Bowel sounds: active, all quadrants, Palpation: abdomen is soft and non-tender, in all quadrants, Rectal exam: hemorrhoid(s), external, with pain, without bleeding, without thrombosis, appear large with no erythema, tenderness, that is severe, 22:33 Skin: rash can be described as erythematous, on the inner thighs and scrotum, 22:33 Neuro: Orientation: to person, place \T\ time. Mentation: is normal, Motor: moves all fours, strength is normal, Sensation: is normal, Vital Signs: 21:33 BP 165 / 112; Pulse 95; Resp 17; Temp 98.3; Pulse Ox 100% ; Weight 106.59 kg; Height 5 dd2 ft. 6 in. ; Pain 8/10; 03/04 00:11 BP 149 / 95; Pulse 88; Resp 16 S; Pulse Ox 98% on R/A; lg3 01:25 BP 146 / 93; Pulse 81; Resp 16 S; Pulse Ox 99% on R/A; lg3 03/03 21:33 Body Mass Index 37.93 (106.59 kg, 167.64 cm) dd2 03/03 21:33 Pain Scale: Adult dd2 MDM: 03/03 22:11 Medical Screening Exam initiated cp 03/04 01:08 Data reviewed: vital signs, nurses notes, lab test result(s), radiologic studies, CT cp scan, and as a result, I will discharge patient. 01:08 Differential diagnosis: hemorrhoids, fissure, abscess, pilonidal cyst, condyloma, cp cellulitis. I considered the following discharge prescriptions or medication management in the emergency department Medications were administered in the Emergency Department. See MAR. Counseling: I had a detailed discussion with the patient and/or guardian regarding the historical points, exam findings, and any diagnostic results supporting the discharge/admit diagnosis, lab results, radiology results, the need for outpatient follow up, for definitive care, a general surgeon, to return to the emergency department if symptoms worsen or persist or if there are any questions or concerns that arise at home. Response to treatment: the patient's symptoms have mildly improved after treatment, and as a result, I will discharge patient. 03/03 22:18 Order name: CBC with Diff; Complete Time: 00:37 cp 03/03 22:18 Order name: CMP; Complete Time: 00:37 cp 03/03 22:18 Order name: Lipase; Complete Time: 00:37 cp 03/03 22:18 Order name: CT Abd/Pelvis - IV Contrast Only; Complete Time: 01:04 cp 03/03 22:18 Order name: IV Saline Lock; Complete Time: 22:38 cp 03/03 22:18 Order name: Labs collected and sent; Complete Time: 22:38 cp Administered Medications: 03/03 22:37 Drug: Ondansetron IVP 4 mg IVP once; over 2 minutes Route: IVP; Site: right antecubital;lg3 03/04 00:05 Follow up: Response: No adverse reaction lg3 03/03 22:38 Drug: morphine IVP or IV 4 mg IVP once over 4 mins Route: IVP; Infused Over: 4 mins; lg3 Site: right antecubital; 03/04 00:05 Follow up: Response: No adverse reaction lg3 01:24 Drug: Lidocaine Mucous Membrane Gel 2 % 1 ea 15 ml Mucous Membrane once; can apply to lg3 rectal area Volume: 15 ml; Route: Mucous Membrane; 01:24 Follow up: Response: No adverse reaction; Medication administered at discharge. lg3 01:24 Drug: HYDROcodone-acetaminophen PO 10 mg-325 mg 1 tabs PO once Route: PO; lg3 01:24 Follow up: Response: No adverse reaction; Medication administered at discharge. lg3 01:24 Drug: Fluconazole PO 400 mg PO once Route: PO; lg3 01:25 Follow up: Response: No adverse reaction; Medication administered at discharge. lg3 Disposition: 01:51 Co-signature as Attending Physician, Kyrie Rowley DO I reviewed the patient's care tt7 provided by the Advanced Practice Provider and agree with the diagnosis and treatment plan. Disposition Summary: 03/04/25 01:09 Discharge Ordered Notes: Location: Home cp Problem: new cp Symptoms: have improved cp Condition: Stable cp Diagnosis - Other hemorrhoids cp - Tinea cruris cp Followup: cp - With: Mark Baldwin MD - When: 1 - 2 days - Reason: Recheck today's complaints Discharge Instructions: - Discharge Summary Sheet cp - High-Fiber Eating Plan cp - Hemorrhoids cp - Jock Itch cp - Surgical Procedures for Hemorrhoids cp Forms: - Medication Reconciliation Form cp - Antibiotic Education cp - Prescription Opioid Use cp - Patient Portal Instructions cp - Leadership Thank You Letter cp Prescriptions: - Miralax 17 gram Oral powder in packet - take 1 packet ORAL route 2 times per day; 20 packet; Refills: 0, Product cp Selection Permitted - Clotrimazole 1 % Topical cream - Apply to affected area 1 application TOPICAL route 2-3 times daily for 8-10 cp days apply to scrotal and groin area; 45 gram; Refills: 0, Product Selection Permitted - Anusol-HC 25 mg Rectal Suppository - insert 1 suppository RECTAL route every 12 hours As needed; 20 suppository; cp Refills: 0, Product Selection Permitted - Tylenol-Codeine #3 300mg-30mg Oral tablet - take 1 tablet ORAL route every 6 hours As needed; 16 tablet; Refills: 0, cp Product Selection Permitted Signatures: Dispatcher [employer] EDND Adolfo Florentino PA-C PAMenaC Leydi Calvert RN RN lg3 JAKE WALKER RN RN dd2 Kyrie Rowley DO DO tt7
--- NOTE | 2025-03-04 01:10 | ER ---
Nurse's Notes [facility] Name: Yobani Dang Age: 55 yrs Sex: Male : 1970 Arrival Date: 03/03/2025 Time: 21:23 Bed 6 Private MD: Chuck Roland Diagnosis: Other hemorrhoids;Tinea cruris Presentation: 03/03 21:33 Chief complaint: Patient states: GOT A LARGE GOLF BALL SIZE HEMORRHOID YESTERDAY AND dd2 CHAFFING BETWEEN THE THIGHS AND TESTICLES TODAY WHILE WORKING OUTSIDE. Coronavirus screen: At this time, the client does not indicate any symptoms associated with coronavirus-19. Ebola Screen: No symptoms or risks identified at this time. Initial Sepsis Screen: Does the patient meet any 2 criteria? No. Patient's initial sepsis screen is negative. Does the patient have a suspected source of infection? No. Patient's initial sepsis screen is negative. Risk Assessment: Do you want to hurt yourself or someone else? Patient reports no desire to harm self or others. Onset of symptoms was March 02, 2025. 21:33 Method Of Arrival: Ambulatory dd2 21:33 Acuity: MOR 4 dd2 Triage Assessment: 21:35 General: Appears in no apparent distress. uncomfortable, Behavior is calm, cooperative, dd2 appropriate for age. Pain: Complains of pain in buttocks, groin, right inner thigh and left inner thigh. GI: Reports hemorrhoids. Historical: - Allergies: 21:35 No Known Allergies; dd2 - PMHx: 21:35 Anxiety; Depression; Hypertension; Kidney stones; PTSD; dd2 - PSHx: 21:35 Knee - Right (knee); Lithotripsy; dd2 - Immunization history:: Adult Immunizations up to date. - Infectious Disease History:: Denies. - Social history:: Smoking status: Patient denies any tobacco usage or history of. Screenin:35 [facility] ED Fall Risk Assessment (Adult) History of falling in the last 3 months, lg3 including since admission No falls in past 3 months (0 pts) Confusion or Disorientation No (0 pts) Intoxicated or Sedated No (0 pts) Impaired Gait No (0 pts) Mobility Assist Device Used No (0 pt) Altered Elimination No (0 pt) Score/Fall Risk Level 0 - 2 = Low Risk Oriented to surroundings, Maintained a safe environment, Educated pt \T\ family on fall prevention, incl call for assistance when getting out of bed, Assessed \T\ reinforced patient's understanding of fall precautions. Abuse screen: Denies threats or abuse. Denies injuries from another. Nutritional screening: No deficits noted. Tuberculosis screening: No symptoms or risk factors identified. Assessment: 22:35 General: Appears in no apparent distress. uncomfortable, Behavior is calm, cooperative. lg3 Pain: Complains of pain in anus and right inner thigh and left inner thigh. Neuro: No deficits noted. Kumar Agitation-Sedation Scale (RASS): 0 - Alert and Calm Level of Consciousness is awake, alert, obeys commands, Oriented to person, place, time, situation. Cardiovascular: No deficits noted. Denies chest pain, shortness of breath, Capillary refill < 3 seconds Clubbing of nail beds is absent JVD is absent Patient's skin is warm and dry. Respiratory: No deficits noted. Airway is patent Respiratory effort is even, unlabored, Respiratory pattern is regular, symmetrical. GI: Abdomen is round non-distended, obese, Bowel sounds present X 4 quads. Abd is soft and non tender X 4 quads. Reports hemorrhoids. : No signs and/or symptoms were reported regarding the genitourinary system. EENT: No deficits noted. No signs and/or symptoms were reported regarding the EENT system. Derm: No deficits noted. Skin is intact, is healthy with good turgor, Skin is dry, Skin is normal, Skin temperature is warm. Musculoskeletal: No deficits noted. No signs and/or symptoms reported regarding the musculoskeletal system. Circulation, motion, and sensation intact. Range of motion: intact in all extremities. 03/04 00:04 Reassessment: Patient appears in no apparent distress at this time. No changes from lg3 previously documented assessment. Patient and/or family updated on plan of care and expected duration. Pain level reassessed. Patient is alert, oriented x 3, equal unlabored respirations, skin warm/dry/pink. 01:25 Reassessment: Patient appears in no apparent distress at this time. No changes from lg3 previously documented assessment. Patient and/or family updated on plan of care and expected duration. Pain level reassessed. Patient is alert, oriented x 3, equal unlabored respirations, skin warm/dry/pink. Vital Signs: 03/03 21:33 BP 165 / 112; Pulse 95; Resp 17; Temp 98.3; Pulse Ox 100% ; Weight 106.59 kg; Height 5 dd2 ft. 6 in. ; Pain 8/10; 03/04 00:11 BP 149 / 95; Pulse 88; Resp 16 S; Pulse Ox 98% on R/A; lg3 01:25 BP 146 / 93; Pulse 81; Resp 16 S; Pulse Ox 99% on R/A; lg3 03/03 21:33 Body Mass Index 37.93 (106.59 kg, 167.64 cm) dd2 03/03 21:33 Pain Scale: Adult dd2 ED Course: 03/03 21:27 Patient arrived in ED. gm2 21:28 Chuck Roland MD is Private Physician. gm2 21:35 Triage completed. dd2 21:35 Arm band placed on left wrist. dd2 22:10 Adolfo Florentino PA-C is PHCP. cp 22:10 Kyrie Rowley DO is Attending Physician. cp 22:11 Teresa Schwartz, WANDA is Primary Nurse. kb4 22:35 Patient has correct armband on for positive identification. Placed in gown. Bed in low lg3 position. Call light in reach. Side rails up X 1. Client placed on continuous cardiac and pulse oximetry monitoring. NIBP monitoring applied. Door closed. Noise minimized. Warm blanket given. Pillow given. 22:35 Initial lab(s) drawn, by me, sent to lab. Inserted saline lock: 20 gauge in right lg3 antecubital area, using aseptic technique. Blood collected. Flushed with 10 mL NS. 22:38 CBC with Diff Sent. lg3 22:38 CMP Sent. lg3 22:38 Lipase Sent. lg3 23:47 CT Abd/Pelvis - IV Contrast Only In Process Unspecified. EDMS 03/04 01:07 Mark Baldwin MD is Referral Physician. cp 01:25 No provider procedures requiring assistance completed. IV discontinued, intact, lg3 bleeding controlled, No redness/swelling at site. Pressure dressing applied. Administered Medications: 03/03 22:37 Drug: Ondansetron IVP 4 mg IVP once; over 2 minutes Route: IVP; Site: right antecubital;lg3 03/04 00:05 Follow up: Response: No adverse reaction lg3 03/03 22:38 Drug: morphine IVP or IV 4 mg IVP once over 4 mins Route: IVP; Infused Over: 4 mins; lg3 Site: right antecubital; 03/04 00:05 Follow up: Response: No adverse reaction lg3 01:24 Drug: Lidocaine Mucous Membrane Gel 2 % 1 ea 15 ml Mucous Membrane once; can apply to lg3 rectal area Volume: 15 ml; Route: Mucous Membrane; 01:24 Follow up: Response: No adverse reaction; Medication administered at discharge. lg3 01:24 Drug: HYDROcodone-acetaminophen PO 10 mg-325 mg 1 tabs PO once Route: PO; lg3 01:24 Follow up: Response: No adverse reaction; Medication administered at discharge. lg3 01:24 Drug: Fluconazole PO 400 mg PO once Route: PO; lg3 01:25 Follow up: Response: No adverse reaction; Medication administered at discharge. lg3 Medication: 03/03 22:35 VIS not applicable for this client. lg3 Outcome: 03/04 01:09 Discharge ordered by . artur 01:25 Discharged to home ambulatory, lg3 01:25 Condition: stable 01:25 Discharge instructions given to patient, Instructed on discharge instructions, follow up and referral plans. medication usage, Demonstrated understanding of instructions, follow-up care, medications, Prescriptions given X 4, 01:27 Patient left the ED. lg3 Signatures: Dispatcher [employer] EDMS Adolfo Florentino PA-C PA-C cp Able, Lacie, RN RN lg3 Shalini Sims gm2 JKAE WALKER RN RN dd2 Teresa Schwartz RN RN kb4
[2025-03-04] MEDS ORDERED: HYDROCODONE/APAP 10/325 TAB ONE (01:12)
[2025-03-04] MEDS ORDERED: FLUCONAZOLE 100 MG TAB ONE (01:13)
[2025-03-04] MEDS ORDERED: LIDOCAINE HCL JELLY 2% 6 ML SYRINGE TOP ONE (01:14)
[2025-03-04 01:42] VITALS: TEMP 98.3
[2025-03-04 01:51] VITALS: BP 146/93; O2SAT 99
== END 2025-03-04 01:27 | disposition home or self-care (01) ==
LOC: ER 21:23
DX: K64.8 Other hemorrhoids (principal); B35.6 Tinea cruris
CPT/HCPCS: 85025; 36415; 83690; 80053; 74177; 96375; 96374; 99284; Q9967; J2405